=== PATIENT | male | born 1945 | race Caucasian/White ===

== ENCOUNTER → 2017-07-20 | Outpatient (CLI) | payer OTHER ==
[~2017-07-20] MED LIST: MEDLIST
[2017-07-20 11:58] LABS: HEMATOCRIT 40.7 % (42-52); HEMOGLOBIN 14.2 g/dL (14.0-18.0); MEAN CELL VOLUME 91.3 fL (80-100); MEAN CORPUSCULAR HEMOGLOBIN 31.8 pg (25-34); MEAN CORPUSCULAR HGB CONC 34.9 g/dl (32-36); MEAN PLATELET VOLUME 9.6 fL (7.4-10.4); PLATELET COUNT 160 K/uL (130-400); RED CELL DISTRIBUTION WIDTH CV 12.5 % (11.5-14.5)
[2017-07-20 12:25] LABS: ALBUMIN 3.6 gm/dl (3.4-5.0); ALT/SGPT 33 U/L (12-78); BLOOD UREA NITROGEN 17 mg/dl (7-18); CALCIUM 8.5 mg/dl (8.5-10.1); CARBON DIOXIDE 31 mmol/L (21-32); CREATININE 0.92 mg/dl (0.60-1.40); GLUCOSE 90 mg/dl (70-99); POTASSIUM 4.3 mmol/L (3.5-5.1); SODIUM 142 mmol/L (136-145)
[2017-07-20 12:28] LABS: ALKALINE PHOSPHATASE 150 U/L (45-117); AST/SGOT 26 U/L (15-37); CHOLESTEROL 96 mg/dl (0-200); LDL CHOLESTEROL CALCULATED 39 mg/dl; TOTAL PROTEIN 7.3 gm/dl (6.4-8.2)
== END | disposition home or self-care (01) ==
LOC: C.LAB1850 11:01
PROVIDERS: ATTEND Internal Medicine Cardiovascular Disease
DX: I10 Essential (primary) hypertension (principal)

== ENCOUNTER 2024-07-18 10:28 | Inpatient (IN) ==
[2024-07-18] MEDS: SODIUM CHLORIDE 0.9% 1,000 ML IV ONE ×2 (11:00→16:43)
[2024-07-18 11:15] LABS: Basophils # (auto) 0.03 K/uL (0.00-0.20); Basophils % (auto) 0.2 %; Hematocrit (blood only) 50.3 % (42.0-52.0); Hemoglobin 16.8 g/dl (14.0-18.0); Immature Granulocytes % (auto) 1.1 %; Lymphocytes # (auto) 0.65 K/uL (1.20-3.40); Lymphocytes % (auto) 3.7 %; Mean Corpuscular Hemoglobin 31.1 pg (25.0-34.0); Mean Corpuscular Hgb Conc 33.4 g/dL (32.0-36.0); Mean Platelet Volume 9.7 fL (9.4-12.4); Monocytes # (auto) 2.33 K/uL (0.11-0.59); Monocytes % (auto) 13.1 %; Neutrophils # (auto) 14.58 K/uL (1.40-6.50); Neutrophils % (auto) 81.9 %; Platelet Count 250 K/uL (130-400); RDW Coefficient of Variation 13.2 % (11.5-14.5); RDW Standard Deviation 44.3 fL (36.4-46.3); Red Blood Count 5.41 M/uL (4.70-6.10); White Blood Count 17.79 K/ul (4.8-10.8)
--- NOTE | 2024-07-18 11:15 | XRay Report ---
XR chest 1V portable CLINICAL HISTORY: Chest pain, nonspecific COMPARISON STUDY: 02/04/2018 FINDINGS: Heart size and pulmonary vasculature are normal. No effusion, consolidation, or pneumothora x. IMPRESSION: No acute findings. ACT 112: Negative or not required by law. Electronically signed by: Wily Prasad M.D. 07/18/2024 11:13 AM
[2024-07-18 11:29] LABS: Bilirubin Direct 0.2 mg/dl (0-0.2)
[2024-07-18 11:30] LABS: Albumin Globulin Ratio 1.4 (0.9-2); Albumin Level 3.2 gm/dl (3.4-5.0); BUN Creatinine Ratio 11.3 (10-20); Bilirubin,Total 0.9 mg/dl (0.2-1.0); Calcium 7.6 mg/dl (8.6-10.3); Creatinine Clr Calc Pharmacy 27.4 ml/min; Globulin 2.3 gm/dl (2.5-4.0); Magnesium 1.5 mg/dl (1.7-2.4); Phosphorus 5.3 mg/dl (2.5-4.9); Potassium 4.3 mmol/L (3.5-5.1); Total Protein 5.5 gm/dl (6.0-8.3)
[2024-07-18 11:41] LABS: Troponin I High Sensitivity 1022.3 pg/ml (0-20)
[2024-07-18 11:47] LABS: INR 1.1 (0.9-1.1)
--- NOTE | 2024-07-18 11:49 | Emergency Department Note ---
Impression & Plan Acute renal failure, Colitis, C. difficile colitis, Hypomagnesemia, Elevated troponin ED Provider Note NAME: BACILIO JHAVERI AGE: 79 SEX: M : 1945 ARRIVES VIA: Ambulance INFORMANT: Patient ED PROVIDER(S): Abisai Cervantes MD CHIEF COMPLAINT: Diarrhea, dehydration, generalized weakness PLAN: Disposition: Admit MEDICAL DECISION MAKING: The patient is a pleasant 79-year-old gentleman with past medical history of paroxysmal atrial fibrillation and atrial flutter on Eliquis, CAD, COPD, GERD who presents to the emergency department via EMS and accompanied by his for evaluation of ongoing frequent diarrhea worsening over the past several days in the setting of having onset of diarrhea over 2 weeks ago where he reports initial suspicion of viral gastroenteritis but when symptoms did not improve was treated for diverticulitis with 10-day course of ciprofloxacin and metronidazole. The patient reports he had several days of improvement/resolution of symptoms and then symptoms recurred more severely with frequent episodes too numerous to count. He denies any fevers. He reports feeling some intermittent upset stomach but denies vomiting. He denies chest pain, shortness of breath or dizziness. Per EMS the patient was hypotensive but improved with administration of 1 L normal saline prior to arrival. Of note, the patient did arrive to emergency department during time of high volume, acuity and prolonged emergency department waiting times. Critical pathways initiated from triage. EKG is without overt acute ischemia. Inferior infarct is seen on prior EKG in June 2023. CXR negative for acute cardiopulmonary process per my personal preliminary review/interpretation. WBC 17.7 K with neutrophilia but no left shift. H/H and platelets within normal limits. Chemistry without metabolic acidosis. Creatinine is 2.3 acutely elevated from prior values which were normal and so consistent with acute renal failure. Magnesium 1.5 with IV repletion initiated. Initial high-sensitivity troponin 1022 in the setting of acute renal failure and likely reflecting demand in setting of the patient's history of CAD. Patient denies chest pain or recent episodes of chest pain. Lipase is not elevated. CT of the chest negative for acute cardiopulmonary process. CT of the abdomen pelvis demonstrates box proctocolitis. Stool studies ordered and pending sample. Patient was treated with IV fluid hydration with 1 L normal saline bolus followed by lactated Ringer's @125cc/hr. Given the patient's acute renal failure in the setting of colitis with suspicion for C. difficile the patient does agree with plan for admission for further management. Case was discussed with Dr. Perales [facility] hospitalist, who will evaluate the patient for admission. Stool studies subsequently resulting and C. difficile PCR was positive for gene and toxin. Stool BioFire was negative. Admitting team updated. Further management per admitting team. Triage Nursing notes reviewed and agree them. Prior/external medical records reviewed Vital Signs: reviewed Differential diagnosis: Gastroenteritis, food borne illness, infections, appendicitis, diverticulitis, inflammatory bowel disease, obstruction, GI bleed, biliary pathology, volvulus, as well as other pathologies. ER treatment provided: See below. Diagnostics interpreted by me: ECG: Normal sinus rhythm, 76 bpm, no ectopy, inferior infarct seen on 07/08/2023. No overt ST elevation or depression, QTc 456, QRS 82. Cardiac Monitoring: An order for continuous cardiac monitoring was placed and demonstrated Normal sinus rhythm, 76 bpm, no ectopy. Laboratory studies: See below Imaging studies: See below Consultation(s): Dr. Perales [facility] hospitalist HPI: The patient is a pleasant 79-year-old gentleman with past medical history of paroxysmal atrial fibrillation and atrial flutter on Eliquis, CAD, COPD, GERD who presents to the emergency department via EMS and accompanied by his for evaluation of ongoing frequent diarrhea worsening over the past several days in the setting of having onset of diarrhea over 2 weeks ago where he reports initial suspicion of viral gastroenteritis but when symptoms did not improve was treated for diverticulitis with 10-day course of ciprofloxacin and metronidazole. The patient reports he had several days of improvement/resolution of symptoms and then symptoms recurred more severely with frequent episodes too numerous to count. He denies any fevers. He reports feeling some intermittent upset stomach but denies vomiting. He denies chest pain, shortness of breath or dizziness. Per EMS the patient was hypotensive but improved with administration of 1 L normal saline prior to arrival. ROS: See above HPI for pertinent positives & negatives. A total of 10 systems reviewed and were otherwise negative. VITALS:See Below PHYSICAL EXAMINATION: GENERAL: Awake, alert, fatigued-appearing, in no distress HENT: Normocephalic, atraumatic. Oropharynx with dry mucous membranes and otherwise unremarkable. EYES: Normal conjunctiva. Sclera non-icteric. NECK: Supple. No nuchal rigidity. FROM. No JVD. RESPIRATORY: Clear to auscultation. CARDIAC: Regular rate, normal rhythm. Extremities warm and well perfused. Pulses equal. ABDOMEN: Soft, non-distended. No tenderness to palpation. No rebound or guarding. No masses. MUSCULOSKELETAL: Chest examination reveals no tenderness. The back is symmetrical on inspection without obvious abnormality. There is no CVA tenderness to palpation. No joint edema. LOWER EXTREMITIES: Calves are equal size bilaterally and non-tender. No edema. No discoloration. NEURO: Normal sensorium. No sensory or motor deficits noted. SKIN: No rash or jaundice noted. Abisai Cervantes MD Past Med/Surg History Problem List (Updated 07/18/24 @ 21:18 by Abisai Cervantes MD) Elevated troponin (Acute) Hypomagnesemia (Acute) C. difficile colitis (Acute) Acute renal failure (Acute) Elevated troponin level not due to acute coronary syndrome Colitis (Acute) Diarrhea Esophageal reflux (Acute) Dyslipidemia (Chronic) Arteriosclerotic coronary artery disease (Chronic) Hypertension (Chronic) Varicose veins of both lower extremities (Acute) Antiplatelet or antithrombotic long-term use Palpitations Paroxysmal atrial fibrillation Paroxysmal atrial flutter Medicare annual wellness visit, subsequent Screening for malignant neoplasm of prostate Chronic anticoagulation Encounter for pre-operative examination Pulmonary nodules CAD (coronary artery disease) 2009- BMS TO RCA COPD (chronic obstructive pulmonary disease) PT DENIES Male erectile disorder of organic origin (Acute) Medical History History of tachycardia Myocardial Infarction Hypertension Hyperlipidemia Surgical History Hx of cataract extraction H/O inguinal hernia repair History of cholecystectomy History of heart artery stent History of tooth extraction Family History Mother Coronary heart disease Acute IN Pacemaker Sister Supraventricular tachycardia Father Congenital kidney disease Other Myocardial infarction No family history of adverse response to anesthesia Denies family history of Rheumatoid arthritis Sudden SIDS (sudden syndrome) Ovarian cancer Prostate cancer Diabetes Deep vein thrombosis Osteoporosis Dyslipidemia Cerebral aneurysm Alzheimer disease Bipolar disorder Clotting disorder Crohn's disease Dementia Depression Heart disease Kidney disease Osteoarthritis Breast cancer Schizophrenia Gestational diabetes Lung cancer COPD (chronic obstructive pulmonary disease) Colorectal cancer Pulmonary embolism Lung disease Hypertension Ulcerative colitis Colonic polyp Stroke Asthma Cystic kidney disease Social History (Updated 07/01/24 @ 11:23 by SILVER Dominguez) Smoking Status: Former smoker Tobacco Type: Cigarettes Age Started Using Tobacco: 15; Age Quit Using Tobacco: 65; packs per day: 1; Cigarettes Per Day: 20; Second Hand Exposure: Yes (as a child); Do You Dip or Chew Tobacco: No; Hx Alcohol Use: No Hx Substance Use: No Preferred Language: Swazi Communication Ability: Effective Visual Impairment: No Limitations Hearing Ability: Normal Electrician Substation Required: No Beliefs That Will Affect Care: None marital status: Current Living Situation: Spouse current occupational status: retired current occupation: used to work in a [employer] and then [employer] Feels Safe at Home: Yes Childhood Exposure to Second-Hand Smoke: No Diet: regular caffeine: Yes during the past year weight has: remained stable Dental Care, Regularly: No Physical Activity Frequency: 3-4 Times per Week Physical Activity Frequency Comment: does exercise in summer months doing yard work Seatbelt Use: always Sunscreen Use: Yes Assistive Devices: Denture - Upper, Denture - Lower and Glasses Allergies Allergies Allergy/AdvReac Type Severity Reaction Status Date / Time No Known Allergies Allergy Verified 07/18/24 13:04 Home Meds Home Medications Medication Instructions Recorded Confirmed aspirin 81 mg tablet,delayed 81 mg PO QAM 11/08/18 07/18/24 release (Jaxon Low Dose Aspirin) Previous Rx's Medication Instructions Recorded nitroglycerin 0.4 mg sublingual 0.4 mg sublingual Q5M PRN chest 04/15/23 tablet pain #30 tabs apixaban 5 mg tablet 5 mg PO BID #180 tabs 04/20/24 atorvastatin 80 mg tablet 80 mg PO QAM #90 tabs 04/20/24 lisinopril 5 mg tablet 5 mg PO QAM #90 tabs 04/20/24 metoprolol tartrate 25 mg tablet 25 mg PO Q6H PRN palpitations #30 04/20/24 tabs Results & Data (ED) Vital Signs Vital Signs - 24 hr 07/18/24 10:37 07/18/24 11:01 07/18/24 11:02 Temperature 36.5 C Temperature Source Oral Pulse Rate 83 85 Pulse Rate [Apical] Respiratory Rate 18 Respiratory Effort / Characteristics Non-Labored Respiratory Depth Normal Blood Pressure 113/62 Blood Pressure [Left Arm] Blood Pressure Mean 79 Blood Pressure Mean [Left Arm] Blood Pressure Position [Left Arm] Pulse Oximetry 97 95 Oxygen Delivery Method Nasal Cannula Room Air Oxygen Flow Rate 2 Sepsis Recent Fever Within 48 Hours No Sepsis New/Unexplained Change in Mental Status No Sepsis Action Taken by Nursing No Action Required 07/18/24 11:02 07/18/24 12:09 07/18/24 13:01 Temperature Temperature Source Pulse Rate Pulse Rate [Apical] 77 74 Respiratory Rate 18 18 Respiratory Effort / Characteristics Respiratory Depth Blood Pressure Blood Pressure [Left Arm] 113/68 115/67 96/57 L Blood Pressure Mean Blood Pressure Mean [Left Arm] 83 83 70 Blood Pressure Position [Left Arm] Lying Lying Pulse Oximetry 93 96 Oxygen Delivery Method Room Air Oxygen Flow Rate Sepsis Recent Fever Within 48 Hours Sepsis New/Unexplained Change in Mental Status Sepsis Action Taken by Nursing Laboratory Data Attestation: I reviewed the patient's lab results. 07/18/24 10:52 07/18/24 18:52 Lab Results 07/18/24 07/18/24 07/18/24 Range/Units 10:52 11:25 12:54 WBC 17.79 H (4.8-10.8) K/ul RBC 5.41 (4.70-6.10) M/uL Hgb 16.8 (14.0-18.0) g/dl Hct 50.3 (42.0-52.0) % MCV 93.0 (80.0-100.0) fL MCH 31.1 (25.0-34.0) pg MCHC 33.4 (32.0-36.0) g/dL RDW Std Deviation 44.3 (36.4-46.3) fL RDW Coeff of Aleisha 13.2 (11.5-14.5) % Plt Count 250 (130-400) K/uL MPV 9.7 (9.4-12.4) fL Immature Gran % (Auto) 1.1 % Neut % (Auto) 81.9 % Lymph % (Auto) 3.7 % Victoria % (Auto) 13.1 % Eos % (Auto) 0.0 % Baso % (Auto) 0.2 % Neut # (Auto) 14.58 H (1.40-6.50) K/uL Lymph # (Auto) 0.65 L (1.20-3.40) K/uL Victoria # (Auto) 2.33 H (0.11-0.59) K/uL Eos # (Auto) 0.00 (0.00-0.50) K/uL Baso # (Auto) 0.03 (0.00-0.20) K/uL Immature Gran # (Auto) 0.20 (0.01-0.20) K/uL PT 12.0 (9.0-12.0) Seconds INR 1.1 (0.9-1.1) Sodium 139 (136-145) mmol/L Potassium 4.3 (3.5-5.1) mmol/L Chloride 107 (98-107) mmol/L Carbon Dioxide 22 (21-32) mmol/L Anion Gap 10 (3-11) BUN 26 H (6-23) mg/dl Creatinine 2.30 H (0.6-1.4) mg/dl Est Cr Clr Drug Dosing 27.4 ml/min eGFR 28.00 BUN/Creatinine Ratio 11.3 (10-20) Glucose 168 H (70-99(Fasting)) mg/dl Calcium 7.6 L (8.6-10.3) mg/dl Phosphorus 5.3 H (2.5-4.9) mg/dl Magnesium 1.5 L (1.7-2.4) mg/dl Total Bilirubin 0.9 (0.2-1.0) mg/dl Direct Bilirubin 0.2 (0-0.2) mg/dl AST 24 (13-39) U/L ALT 28 (7-52) U/L Alkaline Phosphatase 91 (34-104) U/L Troponin I High Sens 1022.3 H* 942.1 H* (0-20) pg/ml Total Protein 5.5 L (6.0-8.3) gm/dl Albumin 3.2 L (3.4-5.0) gm/dl Globulin 2.3 L (2.5-4.0) gm/dl Albumin/Globulin Ratio 1.4 (0.9-2) Lipase 7 L (11-82) U/L Adenovirus (PCR) Not Detected (NotDetected) B. pertussis DNA (PCR) Not Detected (NotDetected) B.parapertussis DNA PCR Not Detected (NotDetected) C. pneumoniae DNA (PCR) Not Detected (NotDetected) Coronavirus OC43 (PCR) Not Detected (NotDetected) Coronavirus HKU1 (PCR) Not Detected (NotDetected) Coronavirus 229E (PCR) Not Detected (NotDetected) SARS-CoV-2 (PCR) Not Detected (NotDetected) Coronavirus NL63 (PCR) Not Detected (NotDetected) Human Metapneumovir PCR Not Detected (NotDetected) Influenza Type A (PCR) Not Detected (NotDetected) Influenza Type B (PCR) Not Detected (NotDetected) M. pneumoniae (PCR) Not Detected (NotDetected) Parainfluenza 1 (PCR) Not Detected (NotDetected) Parainfluenza 2 (PCR) Not Detected (NotDetected) Parainfluenza 3 (PCR) Not Detected (NotDetected) Parainfluenza 4 (PCR) Not Detected (NotDetected) RSV (PCR) Not Detected (NotDetected) Entero/Rhino (PCR) Not Detected (NotDetected) Administered Medications Davies Syrup (Davies Syrup 5 Ml Udp) 5 ml PO Q6 OBIE Stop: 07/28/24 17:59 Last Admin: 07/18/24 17:37 Dose: 5 ml Documented By: KODY Vancomycin HCl (Vancomycin Hcl 125 Mg/2.5ml Soln) 125 mg PO Q6 OBIE Stop: 07/28/24 17:59 Last Admin: 07/18/24 17:37 Dose: 125 mg Documented By: KODY Discontinued Medications Apixaban (Apixaban 5 Mg Tablet) 5 mg PO ONE ONE Stop: 07/18/24 13:34 Last Admin: 07/18/24 14:19 Dose: 5 mg Documented By: LAURA Aspirin (Aspirin Chew 324 Mg) 324 mg PO NOW STA Stop: 07/18/24 13:36 Last Admin: 07/18/24 14:19 Dose: 324 mg Documented By: LAURA Sodium Chloride (Nss) 1,000 mls @ 999 mls/hr IV .Q1H1M ONE Stop: 07/18/24 11:39 Last Infusion: 07/18/24 12:08 Dose: Infused Documented By: Admin: 07/18/24 11:00 Dose: 999 mls/hr Documented By: LAURA Famotidine (Pepcid 20mg Iv Push) 20 mg in 5 mls @ 2.5 mls/min IV NOW STA Stop: 07/18/24 11:52 Last Admin: 07/18/24 12:05 Dose: 2.5 mls/min Documented By: LAURA Magnesium Sulfate/Dextrose (Magnesium Sulfate / D5w) 1 gm in 100 mls @ 100 mls/hr IV Q1H OBIE Stop: 07/18/24 14:08 Last Infusion: 07/18/24 15:00 Dose: Infused Documented By: Admin: 07/18/24 13:57 Dose: 100 mls/hr Documented By: Infusion: 07/18/24 13:57 Dose: Infused Documented By: Admin: 07/18/24 12:57 Dose: 100 mls/hr Documented By: LAURA Lactated Ringer's (Lr) 1,000 mls @ 125 mls/hr IV .Q8H ONE Stop: 07/18/24 21:03 Last Admin: 07/18/24 17:37 Dose: 125 mls/hr Documented By: KOYD Piperacillin Sod/Tazobactam Sod (Zosyn) 4.5 gm in 100 mls @ 200 mls/hr IV NOW ONE; Protocol Stop: 07/18/24 14:01 Last Infusion: 07/18/24 15:15 Dose: Infused Documented By: Admin: 07/18/24 14:45 Dose: 200 mls/hr Documented By: LAURA Sodium Chloride (Nss) 1,000 mls @ 999 mls/hr IV .Q1H1M ONE Stop: 07/18/24 17:24 Last Infusion: 07/18/24 17:36 Dose: Infused Documented By: Admin: 07/18/24 16:43 Dose: 999 mls/hr Documented By: KODY Ondansetron HCl (Ondansetron Inj 2 Mg/Ml 2 Ml Vial) 4 mg IV NOW STA Stop: 07/18/24 11:52 Last Admin: 07/18/24 12:05 Dose: 4 mg Documented By: LAURA Imaging Data Radiologist's Impression: Chest X-Ray 07/18/24 10:40 XR chest 1V portable CLINICAL HISTORY: Chest pain, nonspecific COMPARISON STUDY: 02/04/2018 FINDINGS: Heart size and pulmonary vasculature are normal. No effusion, consolidation, or pneumothorax. IMPRESSION: No acute findings. ACT 112: Negative or not required by law. Electronically signed by: Wily Prasad M.D. 07/18/2024 11:13 AM Abdomen/Pelvis CT 07/18/24 12:[address] WITHOUT CONTRAST HISTORY: Acute chest and abdominal pain Abdominal pain, N/V/D, troponin 1k TECHNIQUE: Multiaxial CT images of the abdomen and pelvis were performed without contrast. A dose lowering technique was utilized adhering to the principles of ALARA. COMPARISON STUDY: Chest CT of same day, CT abdomen and pelvis 02/04/2018 FINDINGS: Chest CT dictated separately. No pneumatosis or pneumoperitoneum. The unenhanced spleen, pancreas and adrenal glands are unremarkable. Cholecystectomy. Unremarkable liver. Kidneys are within normal limits. No hydronephrosis. Urinary bladder wall thickening with partial distention. Prostatomegaly. Atherosclerosis of the abdominal aorta without aneurysm. No new or progressive lymphadenopathy. Partially calcified lesion involving the mesenteric root on image 127 is unchanged from the 2018 comparison measuring up to 2.7 cm. Wall thickening of the distal esophagus with indeterminate mural calcifications is a stable finding. Colonic diverticulosis. There is diffuse wall thickening felt the rectum and sigmoid with adjacent pericolonic and perirectal inflammation. Subcentimeter lymph nodes within the sigmoid mesocolon. Fluid filled appendix measures upper limits of normal in size. No fluid collections. No acute fracture. Grade 1 anterolisthesis L5 on S1 secondary to chronic bilateral pars defects. IMPRESSION: 1. Findings compatible with a box-proctocolitis, likely infectious or inflammatory. 2. No bowel obstruction or pneumoperitoneum. 3. Mural calcifications of the distal esophagus with 2.7 cm calcified lesion/lymph node within the mesenteric root, unchanged from 2018. 4. Colonic diverticulosis. 5. Additional findings as above. ACT 112: Negative or not required by law. The above report was generated using voice recognition software. It may contain grammatical, syntax or spelling errors. Electronically signed by: Angelito Jamison M.D. 07/18/2024 1:[address] 07/18/24 12:06 CT chest diagnostic wo con CT DOSE: 1585.34 mGy.cm CLINICAL HISTORY: 79 years-old Male with Abdominal pain, N/V/D, troponin 1k. Acute chest and abdominal pain TECHNIQUE: Multiaxial CT images of the chest were performed without contrast. A dose lowering technique was utilized adhering to the principles of ALARA. COMPARISON: Chest radiograph of same day, CT abdomen and pelvis 02/04/2018, chest CT 06/12/2011 FINDINGS: Unremarkable thyroid. No pathologically enlarged lymph nodes. There are a few partially calcified mediastinal and hilar lymph nodes suggestive of prior granulomatous disease. Heart is normal in size. No pericardial effusion. Moderate coronary artery calcifications. Atherosclerosis of the aorta without aneurysm. Mild pulmonary emphysema with scarring of the lung apices. 6 mm partially calcified fissural nodule in the right middle lobe on image 133 is likely benign. There are a few additional scattered subcentimeter solid pulmonary nodules noted bilaterally. No suspicious pulmonary nodules or masses. Colonic diverticulosis. There is wall thickening of the splenic flexure and proximal descending colon with mild adjacent inflammatory stranding. Cholecystectomy. Findings suggestive of bilateral adrenal hyperplasia. Bones appear intact. IMPRESSION: 1. Emphysema without acute intrathoracic abnormality. 2. Findings suggestive of a mild acute colitis versus diverticulitis of the splenic flexure and proximal descending colon. Correlate with patient history and physical exam findings. 3. Prior granulomatous disease. 4. Cholecystectomy. ACT 112: Negative or not required by law. Electronically signed by: Angelito Jamison M.D. 07/18/2024 1:04 PM Discharge Plan Visit Data Chief Complaint: Diarrhea Stated Complaint: HYPOTENSION, AB PAIN, FLU LIKE SX ED Provider: Abisai Cervantes Discharge Problem: Acute renal failure, Colitis, C. difficile colitis, Hypomagnesemia, Elevated troponin Patient Disposition: Admitted As Inpatient Discharge Instructions Interventions: ED Discharge Assessment Last Done: 07/18/24 16:11 Discharge Problem: Acute renal failure Qualifiers: Acute renal failure type: unspecified Qualified Code(s): N17.9 - Acute kidney failure, unspecified
[2024-07-18] MEDS: ONDANSETRON INJ 2 MG/ML 2 ML VIAL IV STA (12:05)
[2024-07-18] MEDS: FAMOTIDINE 20MG IV PUSH 20 MG/5 ML SYR IV STA (12:05)
[2024-07-18 12:30] LABS: Adenovirus PCR Not Detected (NotDetected); Bordetella parapertussis PCR Not Detected (NotDetected); Bordetella pertussis PCR Not Detected (NotDetected); Chlamydia pneumoniae PCR Not Detected (NotDetected); Coronavirus 229E PCR Not Detected (NotDetected); Coronavirus CoV-2 (COVID19)PCR Not Detected (NotDetected); Coronavirus HKU1 PCR Not Detected (NotDetected); Coronavirus NL63 PCR Not Detected (NotDetected); Coronavirus OC43PCR Not Detected (NotDetected); Human Metapneumovirus PCR Not Detected (NotDetected); Influenza A PCR Not Detected (NotDetected); Influenza B PCR Not Detected (NotDetected); Mycoplasma pneumoniae PCR Not Detected (NotDetected); Parainfluenza Virus 1 PCR Not Detected (NotDetected); Parainfluenza Virus 2 PCR Not Detected (NotDetected); Parainfluenza Virus 3 PCR Not Detected (NotDetected); Parainfluenza Virus 4 PCR Not Detected (NotDetected); Respiratory Syncytial VirusPCR Not Detected (NotDetected); Rhinovirus/Enterovirus PCR Not Detected (NotDetected)
[2024-07-18] MEDS: MAGNESIUM SULFATE / D5W 1 GM/100 ML BAG IV SCH (12:57)
--- NOTE | 2024-07-18 13:05 | CT Scan Report ---
CT chest diagnostic wo con CT DOSE: 1585.34 mGy.cm CLINICAL HISTORY: 79 years-old Male with Abdominal pain, N/V/D, troponin 1k. Acute chest and abdomin al pain TECHNIQUE: Multiaxial CT images of the chest were performed without contrast. A dose lowering techni que was utilized adhering to the principles of ALARA. COMPARISON: Chest radiograph of same day, CT abdomen and pelvis 02/04/2018, chest CT 06/12/2011 FINDINGS: Unremarkable thyroid. No pathologically enlarged lymph nodes. There are a few partially russel cified mediastinal and hilar lymph nodes suggestive of prior granulomatous disease. Heart is normal i n size. No pericardial effusion. Moderate coronary artery calcifications. Atherosclerosis of the aort a without aneurysm. Mild pulmonary emphysema with scarring of the lung apices. 6 mm partially calcified fissural nodule i n the right middle lobe on image 133 is likely benign. There are a few additional scattered subcentim eter solid pulmonary nodules noted bilaterally. No suspicious pulmonary nodules or masses. Colonic diverticulosis. There is wall thickening of the splenic flexure and proximal descending colon with mild adjacent inflammatory stranding. Cholecystectomy. Findings suggestive of bilateral adrenal hyperplasia. Bones appear intact. IMPRESSION: 1. Emphysema without acute intrathoracic abnormality. 2. Findings suggestive of a mild acute colitis versus diverticulitis of the splenic flexure and proxi mal descending colon. Correlate with patient history and physical exam findings. 3. Prior granulomatous disease. 4. Cholecystectomy. ACT 112: Negative or not required by law. Electronically signed by: Angelito Jamison M.D. 07/18/2024 1:04 PM
--- NOTE | 2024-07-18 13:16 | CT Scan Report ---
ABDOMEN AND PELVIS CT WITHOUT CONTRAST HISTORY: Acute chest and abdominal pain Abdominal pain, N/V/D, troponin 1k TECHNIQUE: Multiaxial CT images of the abdomen and pelvis were performed without contrast. A dose lo wering technique was utilized adhering to the principles of ALARA. COMPARISON STUDY: Chest CT of same day, CT abdomen and pelvis 02/04/2018 FINDINGS: Chest CT dictated separately. No pneumatosis or pneumoperitoneum. The unenhanced spleen, pa ncreas and adrenal glands are unremarkable. Cholecystectomy. Unremarkable liver. Kidneys are within n ormal limits. No hydronephrosis. Urinary bladder wall thickening with partial distention. Prostatomeg jp. Atherosclerosis of the abdominal aorta without aneurysm. No new or progressive lymphadenopathy. Partially calcified lesion involving the mesenteric root on image 127 is unchanged from the 2018 comp arison measuring up to 2.7 cm. Wall thickening of the distal esophagus with indeterminate mural calcifications is a stable finding. Colonic diverticulosis. There is diffuse wall thickening felt the rectum and sigmoid with adjacent pe ricolonic and perirectal inflammation. Subcentimeter lymph nodes within the sigmoid mesocolon. Fluid filled appendix measures upper limits of normal in size. No fluid collections. No acute fracture. Gra de 1 anterolisthesis L5 on S1 secondary to chronic bilateral pars defects. IMPRESSION: 1. Findings compatible with a box-proctocolitis, likely infectious or inflammatory. 2. No bowel obstruction or pneumoperitoneum. 3. Mural calcifications of the distal esophagus with 2.7 cm calcified lesion/lymph node within the me senteric root, unchanged from 2018. 4. Colonic diverticulosis. 5. Additional findings as above. ACT 112: Negative or not required by law. The above report was generated using voice recognition software. It may contain grammatical, syntax o r spelling errors. Electronically signed by: Angelito Jamison M.D. 07/18/2024 1:14 PM
--- NOTE | 2024-07-18 13:42 | History & Physical Report ---
Date of Service July 18, 2024 Assessment & Plan (1) Colitis: Plan: Assessment: 1. Concern for early clinical sepsis with borderline tachycardia 92 bpm with hypotension 96/57. Leukocytosis, acute kidney injury. Blood cultures are obtained stat. Lactic acid obtained stat. IV Zosyn for now given his colitis. 2. Diarrheal illness with colitis on CAT scan. Diverticulitis versus possibly C. difficile colitis. Will begin Zosyn at this time. Stool bio fire is pending. If positive for C. difficile we will go ahead and order oral vancomycin as well. The patient completed a 10-day course of Flagyl and Cipro orally from July 01 through July 11, 2024. Clear liquids for now. 3. Acute kidney injury due to hypovolemia dehydration. Creatinine 2.6. Baseline 0.8-0.9. Hydrate. Monitor BMP carefully. Hold EFREN inhibitor or any nephrotoxic agents. 4. Elevated troponin. Type II non-ST elevation myocardial infarction. Cardiology consulted. Serial troponins. Aspirin 324 stat x 1. Continue Eliquis for now. Echocardiogram ordered. 5. Coronary artery disease status post bare-metal stent to the RCA 2009. 6. Hypomagnesemia. Replaced. Monitor. 7. Hypertension. Continue home meds when blood pressure appropriate. 8. GERD. 9. Dyslipidemia. Continue statin therapy 10. History of paroxysmal atrial fibrillation. Continue Eliquis for now. Plan: As discussed above. Please refer to orders for further planning. History of Present Illness Chief Complaint: Diarrhea Primary Care Provider: Basim Gomez, DO Very pleasant 79-year-old male who back on or about July 01, 2024 saw his PCP for some loose stools and left lower quadrant pain. At that time he was empirically started on Flagyl and Cipro for possible diverticulitis. He completed a 10-day course of that ending on July 11, 2024. Has been doing well up until about 36 hours ago when he developed severe watery diarrhea. He presented to the ER for further evaluation and treatment today. Viral respiratory panel was negative. Laboratory studies had some gross abnormalities including a troponin of 1022, magnesium of 1.5, white count of almost 18,000, creatinine of 2.6 with a baseline of 0.8-0.9. CT of the abdomen pelvis demonstrated colitis versus diverticulitis. Patient received H2 herb, he received some lactated Ringer's magnesium replacement, 2 g,. We are called admit the patient for evaluation and treatment of colitis/diverticulitis. Stool bio fire is pending samples been sent. We have ordered a stat aspirin 324 given the elevated troponin. The patient did not take his morning Eliquis. We spoke personally with cardiology will see the patient in consultation they recommend he continue his Eliquis given no ischemic EKG changes. Do an echocardiogram. Pending a stool bio fire if he does have C. difficile we will begin oral vancomycin. Will isolate empirically pending stool BioFire result Allergies Allergy/AdvReac Type Severity Reaction Status Date / Time No Known Allergies Allergy Verified 07/18/24 13:04 Home Medications Medication Instructions Recorded Confirmed Type aspirin 81 mg tablet,delayed 81 mg PO QAM 11/08/18 07/18/24 History release (Jaxon Low Dose Aspirin) nitroglycerin 0.4 mg sublingual 0.4 mg sublingual Q5M PRN chest 04/15/23 07/18/24 Rx tablet pain #30 tabs apixaban 5 mg tablet 5 mg PO BID #180 tabs 04/20/24 07/18/24 Rx atorvastatin 80 mg tablet 80 mg PO QAM #90 tabs 04/20/24 07/18/24 Rx lisinopril 5 mg tablet 5 mg PO QAM #90 tabs 04/20/24 07/18/24 Rx metoprolol tartrate 25 mg tablet 25 mg PO Q6H PRN palpitations #30 04/20/24 07/18/24 Rx tabs Past Med/Surg History Problem List (Updated 07/18/24 @ 13:39 by Sav Perales, PhD, DO) Colitis Diarrhea Esophageal reflux (Acute) Dyslipidemia (Chronic) Arteriosclerotic coronary artery disease (Chronic) Hypertension (Chronic) Varicose veins of both lower extremities (Acute) Antiplatelet or antithrombotic long-term use Palpitations Paroxysmal atrial fibrillation Paroxysmal atrial flutter Medicare annual wellness visit, subsequent Screening for malignant neoplasm of prostate Chronic anticoagulation Encounter for pre-operative examination Pulmonary nodules CAD (coronary artery disease) 2009- BMS TO RCA COPD (chronic obstructive pulmonary disease) PT DENIES Male erectile disorder of organic origin (Acute) Medical History History of tachycardia Myocardial Infarction Hypertension Hyperlipidemia Surgical History Hx of cataract extraction H/O inguinal hernia repair History of cholecystectomy History of heart artery stent History of tooth extraction Family History Mother Coronary heart disease Acute CA Pacemaker Sister Supraventricular tachycardia Father Congenital kidney disease Other Myocardial infarction No family history of adverse response to anesthesia Denies family history of Rheumatoid arthritis Sudden SIDS (sudden infant syndrome) Ovarian cancer Prostate cancer Diabetes Deep vein thrombosis Osteoporosis Dyslipidemia Cerebral aneurysm Alzheimer disease Bipolar disorder Clotting disorder Crohn's disease Dementia Depression Heart disease Kidney disease Osteoarthritis Breast cancer Schizophrenia Gestational diabetes Lung cancer COPD (chronic obstructive pulmonary disease) Colorectal cancer Pulmonary embolism Lung disease Hypertension Ulcerative colitis Colonic polyp Stroke Asthma Cystic kidney disease Social History (Updated 07/01/24 @ 11:23 by SILVER Dominguez) Smoking Status: Former smoker Tobacco Type: Cigarettes Age Started Using Tobacco: 15; Age Quit Using Tobacco: 65; packs per day: 1; Cigarettes Per Day: 20; Second Hand Exposure: Yes (as a child); Do You Dip or Chew Tobacco: No; Hx Alcohol Use: No Hx Substance Use: No Preferred Language: Pry[place]in[place] Communication Ability: Effective Visual Impairment: No Limitations Hearing Ability: Normal Industrial Electrician Required: No Beliefs That Will Affect Care: None marital status: Current Living Situation: Spouse current occupational status: retired current occupation: used to work in a [employer] and then [employer] Feels Safe at Home: Yes Childhood Exposure to Second-Hand Smoke: No Diet: regular caffeine: Yes during the past year weight has: remained stable Dental Care, Regularly: No Physical Activity Frequency: 3-4 Times per Week Physical Activity Frequency Comment: does exercise in summer months doing yard work Seatbelt Use: always Sunscreen Use: Yes Assistive Devices: Denture - Upper, Denture - Lower and Glasses Review of Systems Review of Systems: A 10 point review of system was obtained and unless otherwise stated here or in history of present illness are negative and noncontributory to chief complaint. Physical Exam Physical Exam: In General: In general pleasant 79-year-old male who is alert and oriented x 3 at the time of my exam. He is in no acute distress he denies any chest pain or shortness of breath or cardiac symptoms whatsoever. He denies nausea. He only mitts to left lower quadrant discomfort and ongoing watery diarrhea. He is accompanied by his at the time my exam whom he grants permission to be in the room during my evaluation. Patient reports he is most recently retired from [employer] as well as serving 4 years in [employer]. HEENT: Normocephalic atraumatic pupils are equal round and reactive to light bilaterally. No scleral icterus no conjunctival injection external auditory canals are patent septum is in the midline nose is without discharge oral mucosa is pink and very dry mucous membranes without lesion. NECK: Supple no rigidity no lymphadenopathy no thyromegaly no carotid bruits no JVD no masses. HEART: Irregular rate and rhythm. Consistent with atrial fibrillation. I do not appreciate any rub or murmur. LUNGS: Clear to auscultation bilaterally and anteriorly with no evidence of adventitious sounds/wheezes rales or rhonchi. ABDOMEN: Soft, mildly tender left lower quadrant especially, no rebound. No peritoneal sign. No appreciable organomegaly. Hyperactive bowel sounds.. EXTREMITIES: Intact, no peripheral cyanosis, clubbing or edema. Strength is 5 out of 5 in extremities x4. NEUROLOGICAL: Cranial nerves II through XII are grossly intact with no focal deficit elicited upon examination. No tremor. Results & Data Results & Data Vital Signs (Past 12 Hours) Vital Signs Temp Pulse Pulse Resp BP BP Pulse Ox 07/18/24 13:01 74 18 96/57 L 96 07/18/24 12:09 77 18 115/67 93 07/18/24 11:02 113/68 07/18/24 11:02 95 07/18/24 11:01 85 07/18/24 10:37 36.5 C 83 18 113/62 97 O2 Del Method O2 Flow Rate 07/18/24 13:01 Room Air 07/18/24 12:09 07/18/24 11:02 07/18/24 11:02 Room Air 07/18/24 11:01 07/18/24 10:37 Nasal Cannula 2 Code Status & VTE Plan Code Status Full code: I personally discussed with patient at the bedside today. VTE Prophylaxis Plan VTE Prophylaxis will be ordered: Yes PG Care Time/CCT Total # of Minutes Spent Total Time Spent with Patient: Total time spent is greater than 50% in coordination of care (as documented) at patient's floor/unit and/or counseling patient: Coding Level of Care Code 47190 INT INP/OBS CARE MIN Diagnoses Colitis K52.9
[2024-07-18] MEDS: APIXABAN 5 MG TABLET PO ONE (14:19)
[2024-07-18] MEDS: ASPIRIN CHEW 324 MG PO STA (14:19)
--- NOTE | 2024-07-18 14:26 | Cardiology Consultation ---
Date of Consultation July 18, 2024 Assessment & Plan (1) Elevated troponin level not due to acute coronary syndrome: Pt is an 79 yo male with past cardiac history of CAD, inferior NE with RCA stent placement in 2009, hx of paroxysmal a-fib and a-flutter. He presented to ED with recurrent diarrhea and found to have elevated troponin in setting dehydration. Pt currently denies ACS symptoms and denies feeling of a-fib exacerbation. Pt states he notes palpitation during active a-fib. Pt's EKG is normal when compared to previous EKGs.. Echocardiogram shows EF of 60-65% with no ventricular wall motion abnormalities. Left concentric ventricular hypertrophy is consistent with that found in echo from 12/2009. Pt's home medications include metoprolol 25mg daily for rate control of paroxysmal afib as well as apixaban and aspirin. - Continue PO metoprolol 25mg q6h - Continue PO apixaban 5mg BID - Continue PO aspirin 81 mg Supervising Physician Co-Signing Physician Notes The patient was seen and examined. Agree with assessment and plan as outlined by Dr. Erazo. Conclusions: 1. Elevated troponin -Minor elevation. -No chest pain or EKG changes. -Echocardiogram with normal left ventricular systolic function and moderate LVH. -Likely supply demand mismatch. -No evidence for an acute coronary syndrome. -No further cardiac evaluation necessary at this time. 2. Coronary artery disease -s/p RCA stent in 2009 -Continue medical management. 3. Paroxysmal atrial dysrhythmia -Continue rate control and long-term anticoagulation. -Currently in sinus rhythm. History of Present Illness Reason for Consultation: Elevated troponin in setting of diarrhea x 2 weeks Requesting Physician: Margarito Montelongo PA-C Attending Physician: Sav Perales MD History of Present Illness Pt is an 79 yo male with PMH of HTN, dyslipidemia, CAD, COPD, paroxysmal a-fib and a- flutter, inferior NE in 2009 with RCA stent placement. Pt follows with Dr. Esquivel for cardiology. Pt presented to ED due to ongoing non bloody diarrhea x 2 weeks. Pt states it started without specific cause. He was prescribed c iprofloxacin and metronidazole by his PCP, which initially helped his GI symptoms. Two days after completion of abx, he started having non-bloody diarrhea again and he has been unable to eat of drink due to nausea, diarrhea and dry heaving. Pt reports feeling weak and tired with abdominal pain and cramping. Pt endorses SOB with walking across room, but able to recover with sitting or standing to rest for less than 10-15 sec. Pt states he typically has a small amount of swelling at bilateral ankles that was occurring prior to GI symptoms. Pt denies chest pain or tightness, severe SOB, diaphoresis, radiating pain to neck/shoulder/back, dizziness, numbness/tingling, and upper extremity swelling. Allergies Allergy/AdvReac Type Severity Reaction Status Date / Time No Known Allergies Allergy Verified 07/18/24 13:04 Home Medications Medication Instructions Recorded Confirmed Type aspirin 81 mg tablet,delayed 81 mg PO QAM 11/08/18 07/18/24 History release (Jaxon Low Dose Aspirin) nitroglycerin 0.4 mg sublingual 0.4 mg sublingual Q5M PRN chest 04/15/23 07/18/24 Rx tablet pain #30 tabs apixaban 5 mg tablet 5 mg PO BID #180 tabs 04/20/24 07/18/24 Rx atorvastatin 80 mg tablet 80 mg PO QAM #90 tabs 04/20/24 07/18/24 Rx lisinopril 5 mg tablet 5 mg PO QAM #90 tabs 04/20/24 07/18/24 Rx metoprolol tartrate 25 mg tablet 25 mg PO Q6H PRN palpitations #30 04/20/24 07/18/24 Rx tabs Patient History Medical History (Reviewed 04/20/24 @ 14:24 by Jarocho Esquivel Jr, MD, LOCATED [facility]IN [facility]) History of tachycardia Myocardial Infarction Hypertension Hyperlipidemia Surgical History Hx of cataract extraction H/O inguinal hernia repair History of cholecystectomy History of heart artery stent History of tooth extraction Family History Mother Coronary heart disease Acute NE Pacemaker Sister Supraventricular tachycardia Father Congenital kidney disease Other Myocardial infarction No family history of adverse response to anesthesia Denies family history of Rheumatoid arthritis Sudden SIDS (sudden infant syndrome) Ovarian cancer Prostate cancer Diabetes Deep vein thrombosis Osteoporosis Dyslipidemia Cerebral aneurysm Alzheimer disease Bipolar disorder Clotting disorder Crohn's disease Dementia Depression Heart disease Kidney disease Osteoarthritis Breast cancer Schizophrenia Gestational diabetes Lung cancer COPD (chronic obstructive pulmonary disease) Colorectal cancer Pulmonary embolism Lung disease Hypertension Ulcerative colitis Colonic polyp Stroke Asthma Cystic kidney disease Social History (Updated 07/01/24 @ 11:23 by ISLVER Dominguez) Smoking Status: Former smoker Tobacco Type: Cigarettes Age Started Using Tobacco: 15; Age Quit Using Tobacco: 65; packs per day: 1; Cigarettes Per Day: 20; Second Hand Exposure: Yes (as a child); Do You Dip or Chew Tobacco: No; Hx Alcohol Use: No Hx Substance Use: No Preferred Language: Chinese Communication Ability: Effective Visual Impairment: No Limitations Hearing Ability: Normal Surgical Services Director Required: No Beliefs That Will Affect Care: None marital status: Current Living Situation: Spouse current occupational status: retired 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 HEENT: Normocephalic, atraumatic. PERRL, No scleral icterus or conjunctival injection. Oral mucosa is pink and with moist mucous membranes. NECK: Supple, no lymphadenopathy. No carotid bruits or JVD. HEART: Regular rate and rhythm with auscultation and via radial pulses, No murmurs noted. 2+ radial and pedal pulses LUNGS: Clear to auscultation bilaterally and anteriorly with no evidence of adventitious sounds/wheezes rales or rhonchi. ABDOMEN: Soft, mildly tender left lower quadrant, no rebound. Hyperactive bowel sounds. EXTREMITIES: Intact, no peripheral cyanosis, clubbing or trace edema at bilateral ankles, nonpitting. ROM is WNL in extremities x4. NEUROLOGICAL: Cranial nerves II through XII are grossly intact with no focal deficit elicited upon examination. No tremor. Results & Data Vital Signs (Past 12 Hours) Vital Signs Temp Pulse Pulse Resp BP BP Pulse Ox 07/18/24 13:01 74 18 96/57 L 96 07/18/24 12:09 77 18 115/67 93 07/18/24 11:02 113/68 07/18/24 11:02 95 07/18/24 11:01 85 07/18/24 10:37 36.5 C 83 18 113/62 97 O2 Del Method O2 Flow Rate 07/18/24 13:01 Room Air 07/18/24 12:09 07/18/24 11:02 07/18/24 11:02 Room Air 07/18/24 11:01 07/18/24 10:37 Nasal Cannula 2 PG Care Time/CCT Total # of Minutes Spent Total Time Spent with Patient: Total time spent is greater than 50% in coordination of care (as documented) at patient's floor/unit and/or counseling patient: Coding Level of Care Code 30000 INT INP/OBS CARE 3/75MIN Diagnoses Elevated troponin level not due to acute coronary syndrome R79.89 Resident Activity Tracking Resident Involvement: Resident Care Provided Care Provided: Adult Hospital Medicine
--- NOTE | 2024-07-18 14:34 | XCELERA ---
[id number] [id number]
[2024-07-18] MEDS: PIPERACILLIN/TAZOBACTAM 4.5 GM/100 ML BAG IV ONE (14:45)
--- NOTE | 2024-07-18 15:44 | Electrocardiogram Report ---
Test Reason : Blood Pressure : */* mmHG Vent. Rate : 76 BPM Atrial Rate : 76 BPM P-R Int : 130 ms QRS Dur : 82 ms QT Int : 406 ms P-R-T Axes : -19 -28 6 degrees QTcB Int : 456 ms Normal sinus rhythm Low voltage QRS Inferior infarct , age undetermined Abnormal ECG When compared with ECG of 04-Feb-2018 07:51, QRS axis Shifted left Inferior infarct is now Present QT has lengthened Confirmed by Сергей Nunn ([id number]) on 07/18/2024 3:44:39 PM Referred By: Confirmed By: Сергей Nunn
[2024-07-18 15:54] LABS: Adenovirus F 40/41 PCR Not Detected (NotDetected); Astrovirus PCR Not Detected (NotDetected); Campylobacter PCR Not Detected (NotDetected); Cryptosporidium PCR Not Detected (NotDetected); Cyclospora cayetanensis PCR Not Detected (NotDetected); Entamoeba histolytica PCR Not Detected (NotDetected); Enteroaggregative E.coli(EAEC) Not Detected (NotDetected); Enteropathogenic E.coli (EPEC) Not Detected (NotDetected); Enterotoxigenic E.coli (ETEC) Not Detected (NotDetected); Giardia lamblia PCR Not Detected (NotDetected); Norovirus GI/GII PCR Not Detected (NotDetected); Plesiomonas shigelloides PCR Not Detected (NotDetected); Rotavirus A PCR Not Detected (NotDetected); Salmonella PCR Not Detected (NotDetected); Sapovirus PCR Not Detected (NotDetected); Shiga-like Toxin E.coli (STEC) Not Detected (NotDetected); Shigella/Enteroinvasive E.coli Not Detected (NotDetected); Vibrio cholerae PCR Not Detected (NotDetected); Vibrio species PCR Not Detected (NotDetected); Yersinia enterocolitica PCR Not Detected (NotDetected)
[2024-07-18 16:07] LABS: Cdiff Antigen Positive; Cdiff Toxin B Gene (2yr or >) Positive Cdiff Gene (Neg)
[2024-07-18 16:10] LABS: Cdiff Toxin A+B Positive Cdiff Toxin (Negative)
[2024-07-18] MEDS ORDERED: ACETAMINOPHEN 325 MG TAB PO PRN (16:21)
[2024-07-18] MEDS: LACTATED RINGER'S 1,000 ML IV ONE (17:37)
[2024-07-18] MEDS: CHERRY SYRUP 5 ML UDP PO SCH (17:37)
[2024-07-18] MEDS: VANCOMYCIN HCL 125 MG/2.5ML SOLN PO SCH (17:37)
[2024-07-18 19:55] LABS: BUN Creatinine Ratio 15.7 (10-20); Calcium 7.5 mg/dl (8.6-10.3); Potassium 3.8 mmol/L (3.5-5.1); Troponin I High Sensitivity 1106.3 pg/ml (0-20)
[2024-07-18] MEDS: PIPERACILLIN/TAZOBACTAM 4.5 GM/100 ML BAG IV SCH (21:29)
[2024-07-18] MEDS: APIXABAN 2.5 MG TAB PO SCH (21:30)
[2024-07-18] MEDS: SODIUM CHLORIDE 0.9% 1,000 ML IV SCH (21:31)
[2024-07-19 00:11] LABS: Appearance Urine Cloudy (Clear); Bacteria Urine Automated None Seen (None Seen); Bilirubin Urine 1+ (Negative); Blood Urine Negative (Negative); Cast Urine Automated >20 /lpf (0-2); Color Urine Dark Yellow; Glucose Urine UA Negative (Negative); Ketones Urine Trace (Negative); Leukocyte Esterase Urine Negative (Negative); Nitrite Urine Negative (Negative); Protein Urine Trace (Negative); Specific Gravity Urine 1.025 (1.000-1.030); Urobilinogen Urine Negative (Negative); WBC Urine Automated 0-5 /hpf (0-5)
[2024-07-19] MEDS: LACTATED RINGER'S 1,000 ML IV ONE ×2 (04:16→05:14)
--- NOTE | 2024-07-19 04:26 | Communication Note ---
Date of Service: July 19, 2024 Overnight I was informed by nursing that the patient had converted to irregularly irregular rhythm consistent with afib w/RVR. Initially pt was hemodynamically stable with rates in the 120s and adequate BP. Pt is anticoagulated for history of PAF. As the evening progressed pts BP began to decline. Given 1L LR bolus. HR and BP did not respond to volume expansion. Given 125mcg digoxin IV. 2nd 1L LR bolus started. Rate calmed down to 110s-120s and MAP around 65 when I left bedside. Resident Activity Tracking Resident Involvement: Resident Care Provided Care Provided: Adult Hospital Medicine
[2024-07-19] MEDS: HYDROmorphone INJ 0.5 MG/0.5 ML SYR IV STA (04:32)
[2024-07-19] MEDS: DIGOXIN 125 MCG in SYRINGE 9.5 ML IV STA (04:48)
[2024-07-19 06:30] LABS: BUN Creatinine Ratio 17.7 (10-20); Calcium 6.6 mg/dl (8.6-10.3); Creatinine Clr Calc Pharmacy 31.1 ml/min; Magnesium 1.8 mg/dl (1.7-2.4); Potassium 4.2 mmol/L (3.5-5.1)
[2024-07-19 06:33] LABS: Basophils # (auto) 0.03 K/uL (0.00-0.20); Basophils % (auto) 0.3 %; Eosinophils # (auto) 0.01 K/uL (0.00-0.50); Eosinophils % (auto) 0.1 %; Hematocrit (blood only) 42.1 % (42.0-52.0); Immature Granulocytes # (auto) 0.06 K/uL (0.01-0.20); Immature Granulocytes % (auto) 0.5 %; Lymphocytes # (auto) 1.05 K/uL (1.20-3.40); Mean Corpuscular Hemoglobin 30.9 pg (25.0-34.0); Mean Corpuscular Hgb Conc 33.3 g/dL (32.0-36.0); Mean Corpuscular Volume 92.9 fL (80.0-100.0); Mean Platelet Volume 9.8 fL (9.4-12.4); Monocytes # (auto) 1.91 K/uL (0.11-0.59); Monocytes % (auto) 16.4 %; Neutrophils # (auto) 8.59 K/uL (1.40-6.50); Neutrophils % (auto) 73.7 %; Platelet Count 201 K/uL (130-400); RDW Standard Deviation 44.3 fL (36.4-46.3); Red Blood Count 4.53 M/uL (4.70-6.10); White Blood Count 11.65 K/ul (4.8-10.8)
[2024-07-19] MEDS: LACTATED RINGER'S 1,000 ML IV SCH (06:47)
[2024-07-19] MEDS: CALCIUM GLUCONATE 1,000 MG/60 ML BAG IV SCH (08:15)
[2024-07-19] MEDS: ASPIRIN 81 MG ECTAB PO SCH (08:16)
[2024-07-19] MEDS: ATORVASTATIN 40 MG TAB PO SCH (08:16)
[2024-07-19] MEDS ORDERED: STAT IV Infusion **Titration per Protocol STA ×2 (08:25→11:50)
[2024-07-19] MEDS: dilTIAZem HCL 125 MG in DEXTROSE 5% 100 ML IV SCH (09:00)
[2024-07-19] MEDS: DIGOXIN 250 MCG in SYRINGE 9 ML IV ONE (10:31)
[2024-07-19] MEDS ORDERED: 0.2 MICRON FILTER SET 1 EACH IV STA (11:50)
[2024-07-19] MEDS ORDERED: AMIODARONE IV BOLUS & DRIP IV STA (11:50)
--- NOTE | 2024-07-19 12:01 | Cardiology Progress Note ---
Date of Service July 19, 2024 Assessment & Plan (1) Paroxysmal atrial fibrillation: Plan: -Has a longstanding history of paroxysmal atrial fibrillation. -Suspect his acute illness a factor in this paroxysm of atrial fibrillation. -Ventricular response remains elevated despite intravenous diltiazem. -Would undertake a trial of intravenous amiodarone to hopefully attain sinus rhythm. -Continue apixaban. (2) Elevated troponin: Plan: -As before, this is likely a supply demand mismatch (acute illness and moderate LVH). -No evidence of an acute coronary syndrome. (3) CAD (coronary artery disease): Plan: -s/p RCA stent in 2009 -Continue medical management. Admission and Anticipated Discharge Date Admission Date: July 18, 2024 Subjective The patient is resting comfortably in bed without complaints of chest pain, dyspnea, or palpitations. We have discussed a short-term trial of amiodarone. Physical Exam Physical Exam: In general this is a well-developed well-nourished white male in no acute distress. HEENT exam is negative. Neck is supple with full carotid upstrokes. There are no carotid bruits. Jugular is pressure is flat at 90 degrees. There is no thyromegaly. Cardiovascular exam reveals an irregular regular rhythm with distant heart sounds. No obvious murmurs. Lungs are clear without rales, rhonchi, or wheezes. Abdomen is soft. Extremities reveal intact radial artery pulse bilaterally. There is no peripheral edema. Results & Data Vital Signs (Past 12 Hours) Vital Signs Temp Pulse Pulse Resp BP Pulse Ox O2 Del Method 07/19/24 11:48 36.7 C 125 H 19 91/54 L 94 Room Air 07/19/24 10:31 104 H 07/19/24 08:10 36.7 C 140 H 19 94/62 L 93 Room Air 07/19/24 05:17 86/56 L 07/19/24 04:48 132 H 07/19/24 04:20 127 H 118/80 07/19/24 02:54 36.6 C 104 H 18 97/58 L 93 Room Air Diagnostic Findings The patient went into atrial fibrillation at approximately 2230 last evening. Ventricular response remains above 100 despite intravenous diltiazem. PG Care Time/CCT Total # of Minutes Spent Total Time Spent with Patient: Total time spent is greater than 50% in coordination of care (as documented) at patient's floor/unit and/or counseling patient: Coding Level of Care Code 43406 SUB INP/OBS CARE 50MIN Diagnoses Paroxysmal atrial fibrillation I48.0 Elevated troponin R79.89 CAD (coronary artery disease) I25.10
[2024-07-19] MEDS: AMIODARONE / D5W 150 MG/100 ML BAG IV STA (12:52)
[2024-07-19] MEDS: AMIODARONE / D5W 360 MG/200 ML BAG IV ONE (13:14)
--- NOTE | 2024-07-19 13:20 | Hospitalist Progress Note ---
Date of Service July 19, 2024 Assessment & Plan (1) C. difficile colitis: Plan: severe illness as marked by acute renal failure, sepsis/lactic acidosis, etc. box-colitis seen on CT a/p no obvious risk factors for acquiring such day #2 of PO vancomycin 125mg QID plan 10 day course if he fails to improve on such will change vanco to dificid cont contact precautions add questran 4gm daily for bulking add lactinex clear liquids for now IV fluids electrolyte replacement (2) Atrial fibrillation with RVR: Plan: history of PAF and paroxysmal a.flutter converted to rapid a.fib overnight with BPs being low he is not a good candidate for BB or CCB s/p digoxin load with some rate control response but still quite tachy d/w cardiology - will stop diltiazem drip, stop digoxin; start amiodarone drip with bolus since he is chronically anticoagulated rhythm control is a good safe option cont Eliquis BID (3) Hypomagnesemia: Plan: s/p replacement resolved (4) Elevated troponin: Plan: 2nd to myocardial demand ischemia in setting of #1 and #2 above no evidence of ACS appreciate cardiology input (5) Acute renal failure: Plan: peak Cr 2.3 now 1.55 this afternoon continue IV Fluids, Rx of c diff colitis, etc. BMP am (6) Hypocalcemia: Plan: corrected calcium is still <8 accounting for minimal hypoalbuminemia in light of rapid a.fib gave 2 grams of IV calcium gluconate this am following such corrected calcium improved but still low give another 1 gram of calcium gluconate then add Tums 500mg TID check 25-OH vit D level am cause of low calcium - diarrhea, hypomagnesemia, etc. (7) CAD (coronary artery disease): Plan: typically on lisinopril, atorvastatin, aspirin, and nitro prn holding lisinopril due to low BPs can continue asa and atorvastatin no ischemic symptoms at this time Plan DVT proph - Eliquis will need PT/OT appreciate cardiology assistance; care d/w cardiology updated at bedside today Admission and Anticipated Discharge Date Admission Date: July 18, 2024 Subjective patient converted into rapid a.fib overnight became hypotensive with such was given IV fluid boluses and a dose of digoxin IV x 1 despite such his rates have been >100 dilt drip started and, despite the dilt drip, rates continued to be poor after discussion with cardiology amiodarone bolus/drip to be started patient continues with severe diarrhea going about 1x/hour pure liquid no blood had abdominal pain overnight - relieved with dilaudid IV x 1 no pain since no appetite but is tolerating clears without nausea/emesis no recent abx usage except for when he was placed on cipro/flagyl for presumed diverticulitis not ill with diarrhea was present during the visit Review of Systems Review of Systems: gen - no fevers or chills; fatigued/weak cv - no chest pain pulm - no dyspnea Physical Exam Physical Exam: gen - NAD, nontoxic, pleasant mouth - MMM neck - no JVD heart - irregularly irregular, s1 s2, tachy, no murmur lungs - fine dry rales b/l bases, no wheeze, normal airation abd - soft, minimally distended, BS+, NT, no HSM, no peritoneal signs ext - no edema, pulses 2+ b/l psych - a/o x 3 Results & Data Results & Data Vital Signs (Past 12 Hours) Vital Signs Temp Pulse Pulse Resp BP Pulse Ox O2 Del Method 07/19/24 11:48 36.7 C 125 H 19 91/54 L 94 Room Air 07/19/24 10:31 104 H 07/19/24 08:10 36.7 C 140 H 19 94/62 L 93 Room Air 07/19/24 05:17 86/56 L 07/19/24 04:48 132 H 07/19/24 04:20 127 H 118/80 07/19/24 02:54 36.6 C 104 H 18 97/58 L 93 Room Air Laboratory Results Laboratory Results - last 24 hr 07/18/24 07/18/24 07/18/24 18:52 23:45 23:55 WBC RBC Hgb Hct MCV MCH MCHC RDW Std Deviation RDW Coeff of Aleisha Plt Count MPV Immature Gran % (Auto) Neut % (Auto) Lymph % (Auto) Riley % (Auto) Eos % (Auto) Baso % (Auto) Neut # (Auto) Lymph # (Auto) Riley # (Auto) Eos # (Auto) Baso # (Auto) Immature Gran # (Auto) Sodium 139 Potassium 3.8 Chloride 106 Carbon Dioxide 21 Anion Gap 12 H BUN 31 H Creatinine 1.97 H D Est Cr Clr Drug Dosing 32.0 eGFR 33.72 BUN/Creatinine Ratio 15.7 Glucose 153 H Lactate 3.7 H* 3.0 H* Calcium 7.5 L Magnesium Troponin I High Sens 1106.3 H* Urine Color Dark Yellow Urine Appearance Cloudy A Urine pH 5.0 Ur Specific [place] 1.025 Urine Protein Trace H Urine Glucose (UA) Negative Urine Ketones Trace H Urine Blood Negative Urine Nitrite Negative Urine Bilirubin 1+ H Urine Urobilinogen Negative Ur Leukocyte Esterase Negative Urine WBC (Auto) 0-5 Urine RBC (Auto) 6-10 H U Hyaline Cast (Auto) >20 H U Epithel Cells (Auto) 6-10 H Urine Bacteria (Auto) None Seen 07/19/24 07/19/24 07/19/24 01:59 05:58 15:10 WBC 11.65 H RBC 4.53 L Hgb 14.0 Hct 42.1 MCV 92.9 MCH 30.9 MCHC 33.3 RDW Std Deviation 44.3 RDW Coeff of Aleisha 13.0 Plt Count 201 MPV 9.8 Immature Gran % (Auto) 0.5 Neut % (Auto) 73.7 Lymph % (Auto) 9.0 Riley % (Auto) 16.4 Eos % (Auto) 0.1 Baso % (Auto) 0.3 Neut # (Auto) 8.59 H Lymph # (Auto) 1.05 L Riley # (Auto) 1.91 H Eos # (Auto) 0.01 Baso # (Auto) 0.03 Immature Gran # (Auto) 0.06 Sodium 137 137 Potassium 4.2 4.0 Chloride 111 H 110 H Carbon Dioxide 24 24 Anion Gap 2 L 3 BUN 36 H 32 H Creatinine 2.03 H 1.55 H D Est Cr Clr Drug Dosing 31.1 40.7 eGFR 32.53 44.97 BUN/Creatinine Ratio 17.7 20.6 H Glucose 119 H 109 H Lactate 2.1 H* 2.8 H* Calcium 6.6 L 7.2 L Magnesium 1.8 Troponin I High Sens Urine Color Urine Appearance Urine pH Ur Specific [place] Urine Protein Urine Glucose (UA) Urine Ketones Urine Blood Urine Nitrite Urine Bilirubin Urine Urobilinogen Ur Leukocyte Esterase Urine WBC (Auto) Urine RBC (Auto) U Hyaline Cast (Auto) U Epithel Cells (Auto) Urine Bacteria (Auto) PG Care Time/CCT Total # of Minutes Spent Total Time Spent with Patient: Total time spent is greater than 50% in coordination of care (as documented) at patient's floor/unit and/or counseling patient: Coding Level of Care Code 03486 SUB INP/OBS CARE 3/50MIN Diagnoses C. difficile colitis A04.72 Atrial fibrillation with RVR I48.91 Hypomagnesemia E83.42 Elevated troponin R79.89 Acute renal failure N17.9 Acute renal failure type: unspecified Hypocalcemia E83.51 CAD (coronary artery disease) I25.10 (5) Acute renal failure Acute renal failure type: unspecified Qualified Code(s): N17.9 - Acute kidney failure, unspecified
[2024-07-19 15:40] LABS: BUN Creatinine Ratio 20.6 (10-20); Calcium 7.2 mg/dl (8.6-10.3); Creatinine Clr Calc Pharmacy 40.7 ml/min
[2024-07-19] MEDS: CHOLESTYRAMINE LIGHT 4 GM PKT PO SCH (16:59)
[2024-07-19] MEDS: CALCIUM GLUCONATE 1,000 MG/60 ML BAG IV STA (18:15)
[2024-07-19] MEDS: AMIODARONE / D5W 360 MG/200 ML BAG IV SCH (18:24)
[2024-07-19] MEDS: CALCIUM CARBONATE 500 MG CHEWABLE TAB PO SCH (20:20)
[2024-07-19] MEDS: ADVANCED PROBIOTIC 625 MG CAPSULE PO SCH (20:20)
[2024-07-20 07:02] LABS: BUN Creatinine Ratio 23.8 (10-20); Calcium 7.1 mg/dl (8.6-10.3); Potassium 3.6 mmol/L (3.5-5.1)
[2024-07-20 08:03] LABS: Hematocrit (blood only) 39.9 % (42.0-52.0); Hemoglobin 13.4 g/dl (14.0-18.0); Mean Corpuscular Hemoglobin 30.8 pg (25.0-34.0); Mean Corpuscular Hgb Conc 33.6 g/dL (32.0-36.0); Mean Corpuscular Volume 91.7 fL (80.0-100.0); Mean Platelet Volume 10.2 fL (9.4-12.4); Platelet Count 180 K/uL (130-400); RDW Coefficient of Variation 12.9 % (11.5-14.5); RDW Standard Deviation 43.5 fL (36.4-46.3); Red Blood Count 4.35 M/uL (4.70-6.10)
[2024-07-20 09:03] LABS: Albumin Level 2.2 gm/dl (3.4-5.0)
[2024-07-20] MEDS: ERGOCALCIFEROL 1250 MCG (50,000 UNITS) CAP PO SCH (10:12)
[2024-07-20] MEDS: AMIODARONE 200 MG TAB PO SCH (12:49)
[2024-07-20] MEDS ORDERED: HYDROCODONE/ACETAMINOPHEN 7.5/325MG TAB PO PRN (15:03)
--- NOTE | 2024-07-20 16:43 | Hospitalist Progress Note ---
Date of Service July 20, 2024 Assessment & Plan (1) C. difficile colitis: Plan: severe illness as marked by acute renal failure, sepsis/lactic acidosis, etc. box-colitis seen on CT a/p no obvious risk factors for acquiring such day #3 of PO vancomycin 125mg QID despite improvement in his WBC count, renal function, etc he continues with SEVERE diarrhea - 10-15 stools/day usually by about day #3 of vanco there is some improvement - less stooling, etc. will d/c vanco; change to Dificid 200mg BID check KUB x-ray - ensure no developing colonic ileus/toxic megacolon if negative for such will allow full liquids cont contact precautions increase questran to 4gm BID cont lactinex defer on additional IV fluids repeat BMP am (2) Sepsis: Plan: 2nd to c diff infection leukocytosis resolved hemodynamically stable LUKE resolved (3) Atrial fibrillation with RVR: Plan: history of PAF and paroxysmal a.flutter converted to rapid a.fib 07/19/24 s/p amiodarone drip with bolus with conversion back to NSR overnight appreciate cardiology assistance IV amio to be changed to PO amio 400mg BID check TSH am cont Eliquis BID (4) Hypomagnesemia: Plan: s/p replacement resolved recheck level am for stability (5) Elevated troponin: Plan: 2nd to myocardial demand ischemia in setting of #1 and #2 above no evidence of ACS appreciate cardiology input (6) Acute renal failure: Plan: peak Cr 2.3 now 1 resolved 2nd to #1 above repeat BMP am (7) Hypocalcemia: Plan: 2nd diarrhea 2nd to poor PO intake 2nd to vitamin D def 2nd to low magnesium s/p IV calcium gluconate x 3 grams in total added Tums 500mg TID level slowly improving today's total calcium level corrected for hypoalbuminemia is low 8's replace low vitamin D (8) CAD (coronary artery disease): Plan: typically on lisinopril, atorvastatin, aspirin, and nitro prn was holding lisinopril due to low BPs and ARF but can likely resume tomorrow can continue asa and atorvastatin no ischemic symptoms at this time (9) Vitamin D deficiency: Plan: 25-OH vit D level = 8 may be contributing in some fashion to his hypocalcemia start ergocalciferol 49285 units weekly x 8 weeks Plan DVT proph - Eliquis PT/OT appreciate cardiology assistance; care d/w cardiology today, Dr Lugo attempted to call pt's this evening - 07/20 - phone rang & rang, unable to leave message Admission and Anticipated Discharge Date Admission Date: July 18, 2024 Subjective overnight patient converted from a.fib to NSR amio drip stopped by cardiology; converted to PO amiodarone patient reports ongoing abdominal discomfort - especially the lower abdomen no vomiting tolerating clears, but appetite remains poor continues with severe diarrhea - has had at least 12 liquid stools since waking up this am having stools all night as well consistency of stool has not changed no dizziness or lightheadedness Review of Systems Review of Systems: gen - no fevers or chills cv - no chest pain or orthopnea pulm - no dyspnea GI - no nausea Physical Exam Physical Exam: gen - NAD, but looks tired mouth - MMM neck - no JVD heart - RRR, s1 s2, no murmur lungs - fine dry rales b/l bases - a little worse today, no wheeze abd - soft, mildly distended, BS+, NT, no HSM, no peritoneal signs ext - 1-2+ edema b/l shins & feet, pulses 2+ b/l psych - a/o x 3 Results & Data Results & Data Vital Signs (Past 12 Hours) Vital Signs Temp Pulse Resp BP Pulse Ox O2 Del Method 07/20/24 14:41 69 16 132/66 97 Room Air 07/20/24 10:52 61 16 148/75 H 96 Room Air 07/20/24 07:25 36.4 C L 61 16 133/71 98 Room Air Laboratory Results Laboratory Results - last 24 hr 07/20/24 05:34 WBC 8.40 RBC 4.35 L Hgb 13.4 L Hct 39.9 L MCV 91.7 MCH 30.8 MCHC 33.6 RDW Std Deviation 43.5 RDW Coeff of Aleisha 12.9 Plt Count 180 MPV 10.2 Sodium 138 Potassium 3.6 Chloride 111 H Carbon Dioxide 23 Anion Gap 4 BUN 25 H Creatinine 1.05 D Est Cr Clr Drug Dosing 60.0 eGFR 71.76 BUN/Creatinine Ratio 23.8 H Glucose 96 Calcium 7.1 L Albumin 2.2 L 25-OH Vitamin D Total 8.0 L PG Care Time/CCT Total # of Minutes Spent Total Time Spent with Patient: Total time spent is greater than 50% in coordination of care (as documented) at patient's floor/unit and/or counseling patient: Coding Level of Care Code 38753 SUB INP/OBS CARE 3/50MIN Diagnoses C. difficile colitis A04.72 Sepsis A41.9 Atrial fibrillation with RVR I48.91 Hypomagnesemia E83.42 Elevated troponin R79.89 Acute renal failure N17.9 Acute renal failure type: unspecified Hypocalcemia E83.51 CAD (coronary artery disease) I25.10 Vitamin D deficiency E55.9 (6) Acute renal failure Acute renal failure type: unspecified Qualified Code(s): N17.9 - Acute kidney failure, unspecified
[2024-07-20] MEDS: FIDAXOMICIN 200 MG TAB PO ONE (17:47)
--- NOTE | 2024-07-20 17:48 | XRay Report ---
EXAM: Radiograph of the Abdomen 1 View INDICATION: Severe C. difficile colitis TECHNIQUE: Frontal supine view of the abdomen/pelvis. COMPARISON: 07/18/2024 FINDINGS: Limitations: None. Gastrointestinal tract: Compared to the head golf coach radiograph of the prior CT, bowel thickening and ileus is improved. Organs: Visualized organ shadows appear grossly normal. Bones/joints: Degenerative changes noted throughout the spine. No acute osseous abnormality seen. Soft tissues: No abnormality noted. No radiopaque foreign body noted. IMPRESSION: Compared to the head golf coach radiograph of the prior CT, bowel thickening and ileus appears improved. CT would more accurately compare given the prior modality was CT. ACT 112: Negative or not required by law. Electronically signed by Cris Carter 07-20-2024 5:48 PM
--- NOTE | 2024-07-20 17:49 | Cardiology Progress Note ---
Date of Service July 20, 2024 Assessment & Plan (1) Paroxysmal atrial fibrillation: (2) CAD (coronary artery disease): (3) Hypertension: (4) Dyslipidemia: Plan ASSESSMENT/PLAN: 1. Paroxysmal atrial fibrillation: Appears to be asymptomatic. Converted while on amiodarone IV. Remains in sinus rhythm today. Can convert to amiodarone 400 mg p.o. twice daily for 8 days, and then 200 mg daily. Monitor transaminase levels and TSH while on amiodarone. TSH ordered for tomorrow to update labs. Monitor ECG periodically. Continue anticoagulation for stroke risk reduction. Monitor CBC and renal function while on Eliquis. 2. CAD s/p prior RCA PCI (01/05/2010): No angina. Continue aspirin 81 mg daily indefinitely. Continue high intensity statin therapy. 3. Hypertension: Blood pressure was hypotensive on 07/19/2024 while in atrial fibrillation but mostly normotensive today. Continue current plan as noted. 4. Dyslipidemia: Continue high intensity statin therapy. 5. Disposition: Follow-up with Dr. 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 Please call with any further questions or concerns. Cardiology will likely sign off for now. Plan of care discussed with primary hospitalist, Dr. Cordon. Admission and Anticipated Discharge Date Admission Date: July 18, 2024 Subjective Patient was seen this morning. He still has diarrhea but improving today. He denies melena, hematochezia, hematuria. He denies palpitations, chest pain, shortness of breath. He did not recall a significant change whether he was in atrial fibrillation or sinus rhythm. He was unaccompanied. Physical Exam Physical Exam: Gen.: No acute distress. Alert. HEENT: Anicteric sclera. Neck: No JVD. Cardiac: Regular. Normal S1-S2. No murmurs, rubs, or gallops. Pulmonary: Clear to auscultation bilaterally without wheezes, rales, or rhonchi. Abdomen: Soft, nontender, nondistended, with normoactive bowel sounds. No bruits noted. Extremities: 2+ radial pulses bilaterally. 2+ posterior tibialis pulses bilaterally. 1+ bilateral lower extremity edema. No cyanosis. Results & Data Vital Signs (Past 12 Hours) Vital Signs Temp Pulse Resp BP Pulse Ox O2 Del Method 07/20/24 14:41 69 16 132/66 97 Room Air 07/20/24 10:52 61 16 148/75 H 96 Room Air 07/20/24 07:25 36.4 C L 61 16 133/71 98 Room Air Intake & Output 07/18/24 07/19/24 07/20/24 07/21/24 06:59 06:59 06:59 06:59 Intake Total 6169.850 / 6169.850 3590.917 / 3590.917 1302.705 / 1302.705 Output Total Balance 6169.850 / 6169.850 3584.917 / 3584.917 1294.705 / 1294.705 Weight 190 lb 11.198 oz 190 lb 7.67 oz Laboratory Results Laboratory Results - last 24 hr 07/20/24 05:34 WBC 8.40 RBC 4.35 L Hgb 13.4 L Hct 39.9 L MCV 91.7 MCH 30.8 MCHC 33.6 RDW Std Deviation 43.5 RDW Coeff of Aleisha 12.9 Plt Count 180 MPV 10.2 Sodium 138 Potassium 3.6 Chloride 111 H Carbon Dioxide 23 Anion Gap 4 BUN 25 H Creatinine 1.05 D Est Cr Clr Drug Dosing 60.0 eGFR 71.76 BUN/Creatinine Ratio 23.8 H Glucose 96 Calcium 7.1 L Albumin 2.2 L 25-OH Vitamin D Total 8.0 L Diagnostic Findings Labs reviewed and notable for slight anemia, improved renal function, back to near baseline, normal potassium, normal magnesium, normal transaminase levels. Telemetry personally reviewed: Sinus rhythm, converting from atrial fibrillation to sinus rhythm on 07/19/2024 at 1805. Echo report reviewed from 07/18/2024: Normal LV systolic function and wall motion. Moderate LVH. No significant valvular abnormalities. Medications Administered Current Inpatient Medications Acetaminophen (Acetaminophen 325 Mg Tab) 650 mg PO Q4H PRN PRN Reason: Pain or Fever Stop: 08/17/24 16:20 Hydrocodone Bitart/Acetaminophen (Hydrocodone/Acetaminophen 7.5/325mg Tab) 1 tab PO Q6H PRN PRN Reason: Pain Stop: 08/03/24 15:02 Amiodarone HCl (Amiodarone 200 Mg Tab) 400 mg PO BIDM OBIE Stop: 08/19/24 12:24 Last Admin: 07/20/24 17:47 Dose: 400 mg Apixaban (Apixaban 5 Mg Tablet) 5 mg PO BID [facility] Stop: 08/19/24 20:59 Aspirin (Aspirin 81 Mg Ectab) 81 mg PO QAM [facility] Stop: 08/18/24 08:59 Last Admin: 07/20/24 09:44 Dose: 81 mg Atorvastatin Calcium (Atorvastatin 40 Mg Tab) 80 mg PO QAM [facility] Stop: 08/18/24 08:59 Last Admin: 07/20/24 09:44 Dose: 80 mg Calcium Carbonate (Calcium Carbonate 500 Mg Chewable Tab) 500 mg PO TID [facility] Stop: 08/18/24 20:59 Last Admin: 07/20/24 14:48 Dose: Not Given Cholestyramine Resin (Cholestyramine Light 4 Gm Pkt) 4 gm PO BID@1000,2200 [facility] Stop: 08/19/24 21:59 Ergocalciferol (Ergocalciferol 1250 Mcg (50,000 Units) Cap) 1,250 mcg PO We@0900 [facility] Stop: 08/19/24 08:59 Last Admin: 07/20/24 10:12 Dose: 1,250 mcg Fidaxomicin (Fidaxomicin 200 Mg Tab) 200 mg PO BID [facility] Stop: 07/30/24 20:59 Lactobacillus Acidophilus (Advanced Probiotic 625 Mg Capsule) 1,250 mg PO DAILY [facility] Stop: 08/18/24 18:29 Last Admin: 07/20/24 09:44 Dose: 1,250 mg PG Care Time/CCT Total # of Minutes Spent Total Time Spent with Patient: Total time spent is greater than 50% in coordination of care (as documented) at patient's floor/unit and/or counseling patient: Coding Level of Care Code 11306 SUB INP/OBS CARE 3/50MIN Diagnoses Paroxysmal atrial fibrillation I48.0 CAD (coronary artery disease) I25.10 Hypertension I10 Dyslipidemia E78.5
[2024-07-20] MEDS: APIXABAN 5 MG TABLET PO SCH (21:15)
[2024-07-20] MEDS: CHOLESTYRAMINE LIGHT 4 GM PKT PO SCH (21:16)
[2024-07-20] MEDS: FIDAXOMICIN 200 MG TAB PO SCH (21:16)
[2024-07-21 06:30] LABS: BUN Creatinine Ratio 18.3 (10-20); Calcium 7.2 mg/dl (8.6-10.3); Creatinine Clr Calc Pharmacy 67.6 ml/min; Magnesium 1.7 mg/dl (1.7-2.4); Potassium 3.4 mmol/L (3.5-5.1)
[2024-07-21 06:44] LABS: Thyroid Stimulating Hormone 3.756 uIu/ml (0.300-4.500)
[2024-07-21] MEDS: POTASSIUM CHLORIDE CRTAB 20 MEQ TABCR PO SCH (09:20)
[2024-07-21] MEDS: MAGNESIUM SULFATE / D5W 1 GM/100 ML BAG IV ONE (09:21)
--- NOTE | 2024-07-21 18:22 | Hospitalist Progress Note ---
Date of Service July 21, 2024 Assessment & Plan (1) C. difficile colitis: Plan: severe illness as marked by acute renal failure, sepsis/lactic acidosis, etc. box-colitis seen on CT a/p no obvious risk factors for acquiring such - thus "community acquired" despite 3-4 days of PO vancomycin 125mg QID he was not having improvement in the frequency or character of his stools/diarrhea changed to Dificid 200mg BID - day #2 of 10 checked KUB x-ray 07/20 -- no colonic ileus/toxic megacolon cont contact precautions cont questran to 4gm BID cont lactinex defer on additional IV fluids - he is drinking well & maintaining hydration with normal BUN & Cr today remains on full liquids - would not advance today (2) Sepsis: Plan: 2nd to c diff infection - sepsis resolved leukocytosis resolved hemodynamically stable LUKE resolved (3) Atrial fibrillation with RVR: Plan: past history of PAF and paroxysmal a.flutter converted to rapid a.fib 07/19/24 s/p amiodarone drip with bolus with conversion back to NSR 07/20/24 IV amio changed to PO amio 400mg BID on 07/20/24 TSH wnl cont Eliquis BID appreciate cardiology assistance (4) Hypomagnesemia: Plan: s/p replacement resolved level today 1.7 - elected to give more IV mag in light of hypokalemia (5) Elevated troponin: Plan: 2nd to myocardial demand ischemia in setting of #1 and #2 above no evidence of ACS appreciate cardiology input (6) Acute renal failure: Plan: peak Cr 2.3 now 0.9 resolved 2nd to #1 above repeat BMP am (7) Hypocalcemia: Plan: 2nd diarrhea 2nd to poor PO intake 2nd to vitamin D def 2nd to low magnesium s/p IV calcium gluconate x 3 grams in total since admission then added Tums 500mg TID level slowly improving today's total calcium level corrected for hypoalbuminemia is still low 8's replace low vitamin D cont Tums (8) CAD (coronary artery disease): Plan: typically on lisinopril, atorvastatin, aspirin, and nitro prn can resume lisinopril today can continue asa and atorvastatin no ischemic symptoms at this time (9) Vitamin D deficiency: Plan: 25-OH vit D level = 8 may be contributing in some fashion to his hypocalcemia start ergocalciferol 65617 units weekly x 8 weeks Plan DVT proph - Eliquis Edema of LEs - likely due to mod-severe hypoalbuminemia - would not give diuretic in light of recent LUKE and ongoing diarrhea edema not bothersome does not examine in CHF PT/OT evals done - can return home at d/c updated pt's extensively at bedside today -- 07/21 Admission and Anticipated Discharge Date Admission Date: July 18, 2024 Subjective no abd pain no cramps still with mild bloating having some burping/belching tolerating full liquids no nausea/emesis main complaint is ongoing diarrhea still liquid; not forming yet going sometimes every hour on the hour tele - NSR overnight at bedside; she was updated Review of Systems Review of Systems: gen - energy is improved; weakness improved; no fevers/chills cv - no chest pain pulm - no dyspnea Physical Exam Physical Exam: gen - NAD, looks better today mouth - MMM neck - no JVD heart - RRR, s1 s2, no murmur lungs - mild fine dry rales b/l bases, no wheeze abd - soft, still mildly distended, BS+, NT, no HSM, no peritoneal signs ext - 1+ edema b/l shins & feet, pulses 2+ b/l psych - a/o x 3 Results & Data Results & Data Vital Signs (Past 12 Hours) Vital Signs Temp Pulse Pulse Resp BP BP Pulse Ox 07/21/24 15:51 36.9 C 66 17 154/62 H 94 07/21/24 14:00 70 07/21/24 10:54 36.4 C L 68 17 148/83 H 95 07/21/24 07:53 54 L 07/21/24 07:39 36.5 C 75 16 155/83 H 94 O2 Del Method 07/21/24 15:51 Room Air 07/21/24 14:00 07/21/24 10:54 Room Air 07/21/24 07:53 07/21/24 07:39 Room Air Laboratory Results Laboratory Results - last 24 hr 07/21/24 05:59 Sodium 138 Potassium 3.4 L Chloride 109 H Carbon Dioxide 24 Anion Gap 5 BUN 17 Creatinine 0.93 Est Cr Clr Drug Dosing 67.6 eGFR 83.01 BUN/Creatinine Ratio 18.3 Glucose 91 Calcium 7.2 L Magnesium 1.7 TSH 3.756 PG Care Time/CCT Total # of Minutes Spent Total Time Spent with Patient: Total time spent is greater than 50% in coordination of care (as documented) at patient's floor/unit and/or counseling patient: Coding Level of Care Code 05517 SUB INP/OBS CARE 2/35MIN Diagnoses C. difficile colitis A04.72 Sepsis A41.9 Atrial fibrillation with RVR I48.91 Hypomagnesemia E83.42 Elevated troponin R79.89 Acute renal failure N17.9 Acute renal failure type: unspecified Hypocalcemia E83.51 CAD (coronary artery disease) I25.10 Vitamin D deficiency E55.9 (6) Acute renal failure Acute renal failure type: unspecified Qualified Code(s): N17.9 - Acute kidney failure, unspecified
[2024-07-21] MEDS: lisinopril 5 MG TAB PO ONE (21:04)
--- NOTE | 2024-07-22 06:08 | Electrocardiogram Report ---
Test Reason : Blood Pressure : */* mmHG Vent. Rate : 82 BPM Atrial Rate : 82 BPM P-R Int : 158 ms QRS Dur : 92 ms QT Int : 466 ms P-R-T Axes : 76 -26 50 degrees QTcB Int : 544 ms Sinus rhythm with Premature atrial complexes Septal infarct , age undetermined Nonspecific ST abnormality Prolonged QT Abnormal ECG When compared with ECG of 18-Jul-2024 10:47, Premature atrial complexes are now Present Septal infarct is now Present Nonspecific T wave abnormality no longer evident in Inferior leads QT has lengthened Confirmed by Volodymyr Lugo ([id number]) on 07/22/2024 6:07:53 AM Referred By: REFERRED SELF Confirmed By: Volodymyr Lugo
[2024-07-22 06:51] LABS: Hematocrit (blood only) 42.3 % (42.0-52.0); Hemoglobin 14.5 g/dl (14.0-18.0); Mean Corpuscular Hemoglobin 30.8 pg (25.0-34.0); Mean Corpuscular Hgb Conc 34.3 g/dL (32.0-36.0); Mean Corpuscular Volume 89.8 fL (80.0-100.0); Mean Platelet Volume 9.8 fL (9.4-12.4); Platelet Count 212 K/uL (130-400); RDW Coefficient of Variation 12.7 % (11.5-14.5); RDW Standard Deviation 42.3 fL (36.4-46.3); Red Blood Count 4.71 M/uL (4.70-6.10); White Blood Count 6.65 K/ul (4.8-10.8)
[2024-07-22 07:13] LABS: BUN Creatinine Ratio 14.3 (10-20); Calcium 7.3 mg/dl (8.6-10.3); Creatinine Clr Calc Pharmacy 74.9 ml/min; Magnesium 1.7 mg/dl (1.7-2.4); Potassium 3.5 mmol/L (3.5-5.1)
[2024-07-22] MEDS: lisinopril 5 MG TAB PO SCH (08:31)
--- NOTE | 2024-07-22 19:18 | Hospitalist Progress Note ---
Date of Service July 22, 2024 Assessment & Plan (1) C. difficile colitis: Plan: severe illness as marked by acute renal failure, sepsis/lactic acidosis, etc. box-colitis seen on CT a/p no obvious risk factors for acquiring such - thus "community acquired" despite 3-4 days of PO vancomycin 125mg QID he was not having improvement in the frequency or character of his stools/diarrhea changed to Dificid 200mg BID on 07/20/24 - thus day #3 of 10 checked KUB x-ray 07/20 -- no colonic ileus/toxic megacolon cont contact precautions cont questran 4gm BID cont lactinex advance diet to low fiber BMP in am of note - we completed an application for patient assistance via the carton wrapper for Dificid THIS WAS APPROVED late today the Dificid course (7 days worth) will be mailed to his home on Thursday, 07/26 (2) Sepsis: Plan: 2nd to c diff infection - sepsis resolved leukocytosis resolved hemodynamically stable LUKE resolved (3) Atrial fibrillation with RVR: Plan: past history of PAF and paroxysmal a.flutter converted to rapid a.fib 07/19/24 s/p amiodarone drip with bolus with conversion back to NSR 07/20/24 IV amio changed to PO amio 400mg BID on 07/20/24 cont amio 400mg BID for 6 more days, then change to 200mg/day thereafter TSH wnl cont Eliquis BID appreciate cardiology assistance will need close f/u post-discharge with cardiology (4) Hypomagnesemia: Plan: s/p replacement resolved level today 1.7 (5) Elevated troponin: Plan: 2nd to myocardial demand ischemia in setting of #1 and #2 above no evidence of ACS appreciate cardiology input (6) Acute renal failure: Plan: peak Cr 2.3 now 0.8 resolved 2nd to #1 above repeat BMP am (7) Hypocalcemia: Plan: 2nd diarrhea 2nd to poor PO intake 2nd to vitamin D def 2nd to low magnesium s/p IV calcium gluconate x 3 grams in total since admission then added Tums 500mg TID level slowly improving today's total calcium level 7.3 corrected for hypoalbuminemia is still low 8's replace low vitamin D cont Tums (8) CAD (coronary artery disease): Plan: cont lisinopril, atorvastatin, aspirin, and nitro prn no ischemic symptoms at this time (9) Vitamin D deficiency: Plan: 25-OH vit D level = 8 may be contributing in some fashion to his hypocalcemia start ergocalciferol 87152 units weekly x 8 weeks Plan DVT proph - Eliquis Edema of LEs - likely due to mod-severe hypoalbuminemia - would not give diuretic in light of recent LUKE and ongoing diarrhea edema not bothersome does not examine in CHF perhaps can give a dose of PO lasix starting tomorrow PT/OT evals done - can return home at d/c updated pt's extensively at bedside 07/21 attempted to call pt's at home phone # listed in chart; phone rang & rang, no answer, unable to leave message pt assistance program for Dificid -- application completed, APPROVED! home this weekend Admission and Anticipated Discharge Date Admission Date: July 18, 2024 Subjective tele overnight - NSR patient reports stools are "trying to firm up" still with several stools since waking up this am but frequency of the stooling is less just some mild abdominal cramps after having a stool no pain no nausea/emesis still with LE edema but denies any dyspnea Review of Systems Review of Systems: gen - no fevers or chills cv - no chest pain pulm - no SALAZAR Physical Exam Physical Exam: gen - NAD, sitting at side of bed, looks good mouth - MMM neck - no JVD heart - RRR, s1 s2, no murmur lungs - minimal fine dry rales b/l bases, no wheeze abd - soft, ND, BS+, NT, no HSM, no peritoneal signs ext - <1+ edema b/l shins & feet, pulses 2+ b/l psych - a/o x 3 Results & Data Results & Data Vital Signs (Past 12 Hours) Vital Signs Temp Pulse Pulse Resp BP BP Pulse Ox 07/22/24 15:50 79 07/22/24 14:53 36.6 C 61 18 132/67 96 07/22/24 11:17 36.9 C 62 18 128/75 07/22/24 08:10 36.5 C 72 18 147/75 H 95 07/22/24 07:20 65 O2 Del Method 07/22/24 15:50 07/22/24 14:53 07/22/24 11:17 Room Air 07/22/24 08:10 Room Air 07/22/24 07:20 Laboratory Results Laboratory Results - last 24 hr 07/22/24 05:35 WBC 6.65 RBC 4.71 Hgb 14.5 Hct 42.3 MCV 89.8 MCH 30.8 MCHC 34.3 RDW Std Deviation 42.3 RDW Coeff of Aleisha 12.7 Plt Count 212 MPV 9.8 Sodium 139 Potassium 3.5 Chloride 110 H Carbon Dioxide 24 Anion Gap 5 BUN 12 Creatinine 0.84 Est Cr Clr Drug Dosing 74.9 eGFR 88.16 BUN/Creatinine Ratio 14.3 Glucose 93 Calcium 7.3 L Magnesium 1.7 PG Care Time/CCT Total # of Minutes Spent Total Time Spent with Patient: Total time spent is greater than 50% in coordination of care (as documented) at patient's floor/unit and/or counseling patient: Coding Level of Care Code 01775 SUB INP/OBS CARE 3/50MIN Diagnoses C. difficile colitis A04.72 Sepsis A41.9 Atrial fibrillation with RVR I48.91 Hypomagnesemia E83.42 Elevated troponin R79.89 Acute renal failure N17.9 Acute renal failure type: unspecified Hypocalcemia E83.51 CAD (coronary artery disease) I25.10 Vitamin D deficiency E55.9 (6) Acute renal failure Acute renal failure type: unspecified Qualified Code(s): N17.9 - Acute kidney failure, unspecified
[2024-07-23 07:32] LABS: BUN Creatinine Ratio 11.1 (10-20); Calcium 7.3 mg/dl (8.6-10.3); Creatinine Clr Calc Pharmacy 69.9 ml/min; Potassium 3.6 mmol/L (3.5-5.1)
[2024-07-23] MEDS: FUROSEMIDE 20 MG TAB PO ONE (09:47)
[2024-07-23] MEDS: MAGNESIUM SULFATE / D5W 1 GM/100 ML BAG IV ONE (09:47)
--- NOTE | 2024-07-23 15:43 | Hospitalist Progress Note ---
Date of Service July 23, 2024 Assessment & Plan (1) C. difficile colitis: Plan: severe illness as marked by acute renal failure, sepsis/lactic acidosis, etc. box-colitis seen on CT a/p no obvious risk factors for acquiring such - thus community acquired despite 3-4 days of PO vancomycin 125mg QID he was not having improvement in the frequency or character of his stools/diarrhea earlier in the stay thus, changed to Dificid 200mg BID on 07/20/24 - day #4 checked KUB x-ray 07/20 -- no colonic ileus/toxic megacolon cont contact precautions cont questran 4gm BID cont lactinex low fiber diet BMP in am of note - we completed an application for patient assistance via the rn cardiology for Dificid THIS WAS APPROVED 07/22/24 the Dificid course (7 days worth) will be mailed to his home on Thursday, 07/26 (2) Sepsis: Plan: 2nd to c diff infection sepsis resolved leukocytosis resolved hemodynamically stable LUKE resolved (3) Atrial fibrillation with RVR: Plan: past history of PAF and paroxysmal a.flutter converted to rapid a.fib 07/19/24 s/p amiodarone drip with bolus with conversion back to NSR 07/20/24 IV amio changed to PO amio 400mg BID on 07/20/24 cont amio 400mg BID for 5 more days, then change to 200mg/day thereafter TSH wnl cont Eliquis BID appreciate cardiology assistance will need close f/u post-discharge with cardiology (4) Hypomagnesemia: Plan: s/p replacement resolved (5) Elevated troponin: Plan: 2nd to myocardial demand ischemia in setting of #1 and #2 above no evidence of ACS appreciate cardiology input (6) Acute renal failure: Plan: peak Cr 2.3 now 0.9 resolved 2nd to #1 above repeat BMP am (7) Hypocalcemia: Plan: 2nd diarrhea 2nd to poor PO intake 2nd to vitamin D def 2nd to low magnesium s/p IV calcium gluconate x 3 grams in total since admission then added Tums 500mg TID levels improved today's total calcium level 7.3 repeat calcium with albumin level in am tomorrow replace low vitamin D cont Tums (8) CAD (coronary artery disease): Plan: cont lisinopril, atorvastatin, aspirin, and nitro prn no ischemic symptoms at this time (9) Vitamin D deficiency: Plan: 25-OH vit D level = 8 may be contributing in some fashion to his hypocalcemia start ergocalciferol 38915 units weekly x 8 weeks Plan DVT proph - Eliquis Edema of LEs - likely due to mod-severe hypoalbuminemia - lasix 20mg po x 1 labs in am albumin level in am PT/OT evals done - can return home at d/c updated pt's extensively at bedside 07/21 and today pt assistance program for Dificid -- application completed, APPROVED home tomorrow Admission and Anticipated Discharge Date Admission Date: July 18, 2024 Subjective patient tolerating low fiber diet no abd pain no bloating still having frequent stools but they are very small in size the # of stools are much better in comparison to admission tele overnight - NSR orientation of P axis has been alternating between positive and negative at times Review of Systems Review of Systems: gen - no fevers, chills or fatigue/weakness; ambulating cv - no cp, no orthopnea pulm - no dyspnea or SALAZAR GI - no vomiting neuro - no dizziness or lightheadedness Physical Exam Physical Exam: gen - NAD, laying in bed comfortably mouth - MMM neck - no JVD heart - RRR, s1 s2, no murmur lungs - CTA B/l abd - soft, ND, BS+, NT, no HSM, no peritoneal signs ext - <1+ edema b/l shins & feet, pulses 2+ b/l psych - a/o x 3 Results & Data Results & Data Vital Signs (Past 12 Hours) Vital Signs Temp Pulse Pulse Resp BP BP Pulse Ox 07/23/24 14:23 63 07/23/24 11:35 36.5 C 63 16 135/83 93 07/23/24 08:00 58 L 07/23/24 07:57 36.7 C 60 20 130/65 95 O2 Del Method 07/23/24 14:23 07/23/24 11:35 Room Air 07/23/24 08:00 07/23/24 07:57 Room Air Laboratory Results Laboratory Results - last 24 hr 07/23/24 06:26 Sodium 137 Potassium 3.6 Chloride 110 H Carbon Dioxide 23 Anion Gap 4 BUN 10 Creatinine 0.90 Est Cr Clr Drug Dosing 69.9 eGFR 86.34 BUN/Creatinine Ratio 11.1 Glucose 90 Calcium 7.3 L PG Care Time/CCT Total # of Minutes Spent Total Time Spent with Patient: Total time spent is greater than 50% in coordination of care (as documented) at patient's floor/unit and/or counseling patient: Coding Level of Care Code 60816 SUB INP/OBS CARE 2/35MIN Diagnoses C. difficile colitis A04.72 Sepsis A41.9 Atrial fibrillation with RVR I48.91 Hypomagnesemia E83.42 Elevated troponin R79.89 Acute renal failure N17.9 Acute renal failure type: unspecified Hypocalcemia E83.51 CAD (coronary artery disease) I25.10 Vitamin D deficiency E55.9 (6) Acute renal failure Acute renal failure type: unspecified Qualified Code(s): N17.9 - Acute kidney failure, unspecified
[2024-07-24 06:47] LABS: Basophils # (auto) 0.04 K/uL (0.00-0.20); Basophils % (auto) 0.6 %; Eosinophils # (auto) 0.14 K/uL (0.00-0.50); Eosinophils % (auto) 2.1 %; Hematocrit (blood only) 40.1 % (42.0-52.0); Hemoglobin 13.3 g/dl (14.0-18.0); Immature Granulocytes # (auto) 0.24 K/uL (0.01-0.20); Immature Granulocytes % (auto) 3.5 %; Lymphocytes # (auto) 1.05 K/uL (1.20-3.40); Lymphocytes % (auto) 15.4 %; Mean Corpuscular Hemoglobin 30.2 pg (25.0-34.0); Mean Corpuscular Hgb Conc 33.2 g/dL (32.0-36.0); Mean Corpuscular Volume 91.1 fL (80.0-100.0); Mean Platelet Volume 9.5 fL (9.4-12.4); Monocytes # (auto) 1.31 K/uL (0.11-0.59); Monocytes % (auto) 19.2 %; Neutrophils # (auto) 4.03 K/uL (1.40-6.50); Neutrophils % (auto) 59.2 %; Platelet Count 211 K/uL (130-400); RDW Standard Deviation 43.1 fL (36.4-46.3); White Blood Count 6.81 K/ul (4.8-10.8)
[2024-07-24 07:07] LABS: Albumin Level 2.6 gm/dl (3.4-5.0); BUN Creatinine Ratio 9.3 (10-20); C Reactive Protein 0.99 mg/dl (0-0.5); Calcium 7.3 mg/dl (8.6-10.3); Creatinine Clr Calc Pharmacy 64.7 ml/min; Magnesium 1.6 mg/dl (1.7-2.4); Potassium 3.7 mmol/L (3.5-5.1)
[2024-07-24] MEDS: MAGNESIUM SULFATE / D5W 1 GM/100 ML BAG IV SCH (09:14)
[2024-07-24] MEDS: FUROSEMIDE 20 MG TAB PO ONE (09:15)
[2024-07-24 11:19] VITALS: RESP 16; TEMP 97.7; O2SAT 96
--- NOTE | 2024-07-24 13:40 | Discharge Summary ---
Discharge Summary Date of Service July 24, 2024 Principal Dx & Hospital Course #1 = Principal Diagnosis (1) C. difficile colitis: severe illness as marked by acute renal failure, sepsis/lactic acidosis, etc. box-colitis seen on CT a/p no obvious risk factors for acquiring such - thus community acquired despite 3-4 days of PO vancomycin 125mg QID he was not having improvement in the frequency or character of his stools/diarrhea earlier in the stay thus, changed to Dificid 200mg BID on 07/20/24 - day #4 checked KUB x-ray 07/20 -- no colonic ileus/toxic megacolon cont contact precautions cont questran 4gm BID cont lactinex low fiber diet BMP in am of note - we completed an application for patient assistance via the freezing machine operator for Dificid THIS WAS APPROVED 07/22/24 the Dificid course (7 days worth) will be mailed to his home on Thursday, 07/26 (2) Sepsis: 2nd to c diff infection sepsis resolved leukocytosis resolved hemodynamically stable LUKE resolved (3) Atrial fibrillation with RVR: past history of PAF and paroxysmal a.flutter converted to rapid a.fib 07/19/24 s/p amiodarone drip with bolus with conversion back to NSR 07/20/24 IV amio changed to PO amio 400mg BID on 07/20/24 cont amio 400mg BID for 5 more days, then change to 200mg/day thereafter TSH wnl cont Eliquis BID appreciate cardiology assistance will need close f/u post-discharge with cardiology (4) Hypomagnesemia: s/p replacement resolved (5) Elevated troponin: 2nd to myocardial demand ischemia in setting of #1 and #2 above no evidence of ACS appreciate cardiology input (6) Acute renal failure: peak Cr 2.3 now 0.9 resolved 2nd to #1 above repeat BMP am (7) Hypocalcemia: 2nd diarrhea 2nd to poor PO intake 2nd to vitamin D def 2nd to low magnesium s/p IV calcium gluconate x 3 grams in total since admission then added Tums 500mg TID levels improved today's total calcium level 7.3 repeat calcium with albumin level in am tomorrow replace low vitamin D cont Tums (8) CAD (coronary artery disease): cont lisinopril, atorvastatin, aspirin, and nitro prn no ischemic symptoms at this time (9) Vitamin D deficiency: 25-OH vit D level = 8 may be contributing in some fashion to his hypocalcemia start ergocalciferol 94254 units weekly x 8 weeks Plan DVT proph - Eliquis Edema of LEs - likely due to mod-severe hypoalbuminemia - lasix 20mg po x 1 labs in am albumin level in am PT/OT evals done - can return home at d/c updated pt's extensively at bedside 07/21 and today pt assistance program for Dificid -- application completed, APPROVED home tomorrow Admission HPI Per Admitting Provider Very pleasant 79-year-old male who back on or about July 01, 2024 saw his PCP for some loose stools and left lower quadrant pain. At that time he was empirically started on Flagyl and Cipro for possible diverticulitis. He completed a 10-day course of that ending on July 11, 2024. Has been doing well up until about 36 hours ago when he developed severe watery diarrhea. He presented to the ER for further evaluation and treatment today. Viral respiratory panel was negative. Laboratory studies had some gross abnormalities including a troponin of 1022, magnesium of 1.5, white count of almost 18,000, creatinine of 2.6 with a baseline of 0.8-0.9. CT of the abdomen pelvis demonstrated colitis versus diverticulitis. Patient received H2 herb, he received some lactated Ringer's magnesium replacement, 2 g,. We are called admit the patient for evaluation and treatment of colitis/diverticulitis. Stool bio fire is pending samples been sent. We have ordered a stat aspirin 324 given the elevated troponin. The patient did not take his morning Eliquis. We spoke personally with cardiology will see the patient in consultation they recommend he continue his Eliquis given no ischemic EKG changes. Do an echocardiogram. Pending a stool bio fire if he does have C. difficile we will begin oral vancomycin. Will isolate empirically pending stool BioFire result Discharge Exam gen - NAD, laying in bed comfortably mouth - MMM neck - no JVD heart - RRR, s1 s2, no murmur lungs - CTA B/l abd - soft, ND, BS+, NT, no HSM, no peritoneal signs ext - <1+ edema b/l shins & feet, pulses 2+ b/l psych - a/o x 3 Discharge Plan Discharge Items Patient Disposition: Home - Self-Care Reason For Visit: Severe diarrhea Discharge Diagnosis: 1. severe c diff colitis - improving 2. severe diarrhea - due to #1 3. acute kidney injury/acute kidney failure - resolved 4. rapid atrial fibrillation - resolved 5. low magnesium - resolved 6. low potassium - resolved 7. low calcium - improving 8. malnutrition - due to #1 - improved 9. edema of legs - due to malnutrition/low blood protein levels - improving 10. chronic diverticulosis/diverticular disease - nothing to do at this time 11. vitamin D deficiency Activity: As commented below Activity Comment: gradually increase activities over the next week Exercise/Sports: Wait until after follow-up appointment Non-emergency contact: Primary Care Provider Call non-emergency contact if: you have any medication questions, your symptoms worsen and you have a fever Follow-up/Referrals: Jarocho Esquivel Jr, MD, FACC [Physician] - (within 2 weeks for your a.fib ) Basim Gomez, [Primary Care Provider] - (within 5-7 days ) Diet: Low Fiber Addtl Attending Provider Instructions: Mr Chappell, You were hospitalized due to severe diarrhea. CT scan of your abdomen showed that the entire colon was sick & inflamed. We call this "colitis." There are a number of different causes of colitis including infection. You indeed had a severe infection due to clostridium difficile, also known as "c diff." You initially received vancomycin oral antibiotic for the c.diff. However, even after several days of this antibiotic, you were not improving. Thus, we changed you to a different antibiotic called "Dificid" on 07/20/24. You improved nicely with the Dificid. Your stay was complicated by rapid atrial fibrillation. [facility] assisted with the treatment of your atrial fibrillation. You ultimately were treated with a medicine called "amiodarone" which converted your atrial fibrillation back to normal rhythm. Since the amiodarone was started you have remained in normal rhythm. Your kidney function has returned to normal. Your electrolytes have returned to normal. You received supplemental electrolytes as needed throughout the stay. Due to the severity and longevity of your illness (dating back to early June) you became malnourished and your blood protein levels decreased. This led to the development of edema in your feet/legs. Your blood protein levels are improving as your food intake has gone up. Recommendations - 1. Please assume you are contagious to others until your stools are back to normal form/calibre. Alcohol-based hand sanitizers DO NOT kill c diff. Good handwashing with soap/water DOES kill c diff. See handouts. If you have 2 or more bathrooms at home please use a separate bathroom than your spouse until your illness has resolved. Cleaning/disinfecting your home - see handouts. 2. Dificid antibiotic - * Abimael Reese is giving you 2 tablets of this antibiotic to take on 07/25/24 * take 1 tablet in the morning and 1 tablet in the evening * then, on Thursday07/26/24, you should be receiving a 7-day supply of additional Dificid to complete your course * this will be mailed to your home; start it right away once it arrives 3. Cholestyramine powder - * take this once daily starting 07/25/24 * you can stop this medicine once your stools are back to normal quantity and normal form/calibre * suspect you will be able to stop it in about 3-4 days 4. DO NOT TAKE anti-diarrheal medicine such as Pepto-bismal or Imodium. 5. You can take an [id number] probiotic supplement if you desire. Take it once daily for about 2 weeks. 6. Low fiber diet x 10-14 days; see handout. 7. Amiodarone for your atrial fibrillation - * take (2) 200mg tablets twice daily x 4 days starting TONIGHT (400mg twice daily) --- Then - * reduce to (1) 200mg tablet once daily thereafter 8. DO NOT TAKE ANY METOPROLOL moving forward unless instructed by Dr Esquivel. 9. For vitamin D deficiency - * take ergocalciferol - 1 capsule once a week on Wednesdays x 7 weeks 10. For swelling in your feet/legs - * take furosemide diuretic 20mg each morning starting tomorrow * take a potassium & magnesium supplement when you take the furosemide * I gave you a 3-day supply of each * if the edema is minimal or gone by Thursday you can skip the remaining doses of furosemide/magnesium/potassium * however, you can take each up to 3 days in duration if necessary 11. Consider Boost or Ensure protein drink daily for about 10-14 days to help build your protein stores back up. Follow-up - see separate section Return to [facility] if - * you have fevers over 100.4 degrees * you have recurrent or worsening abdominal pain * your diarrhea worsens despite taking the Dificid * you have vomiting * you are short of breath or have chest pains * any other concerns It was our pleasure to care for you! Please continue to feel better, Dr Cordon Pending Studies at Discharge: No Stand-Alone Forms: My [facility], Smoking Cessation Medications and DC Order Prescriptions: New amiodarone 200 mg Tablet 200 mg PO DIRECTED Qty: 60 2RF Rx Instructions: take 2 tablets twice daily x 4 days, then reduce to 1 tablet daily thereafter. ergocalciferol (vitamin D2) 1,250 mcg (50,000 unit) Capsule 1,250 mcg PO We@0900 49 Days Qty: 7 0RF Rx Instructions: take 1 capsule each week on Wednesdays for total of 7 weeks. cholestyramine-aspartame [Prevalite] 4 gram Powder In Packet 1 ea PO DAILY Qty: 7 0RF Dificid 200 mg Tablet 200 mg PO BID 7 Days Qty: 14 0RF furosemide [Lasix] 20 mg tablet 20 mg PO QAM Qty: 3 0RF potassium chloride 20 mEq tablet extended release 20 meq PO DAILY Qty: 3 0RF magnesium chloride 64 mg tablet,delayed release (DR/EC) 64 mg PO DAILY Qty: 3 0RF Continued nitroglycerin 0.4 mg tablet, sublingual 0.4 mg Sublingual Q5M PRN (Reason: chest pain) Qty: 30 1RF apixaban 5 mg tablet 5 mg PO BID Qty: 180 3RF atorvastatin 80 mg tablet 80 mg PO QAM Qty: 90 3RF lisinopril 5 mg tablet 5 mg PO QAM Qty: 90 3RF aspirin [Jaxon Low Dose Aspirin] 81 mg tablet,delayed release (DR/EC) 81 mg PO QAM Discontinued metoprolol tartrate 25 mg tablet 25 mg PO Q6H PRN (Reason: palpitations) Qty: 30 5RF Discharge Orders: Discharge Order (Routine); Ordered 07/24/24 Ordered By: Dae Go/Other Patient Handouts: Amiodarone Oral Tablet, Fidaxomicin Oral Tablet, Low-Fiber Diet, C. Diff Prevent Infection, What Is C. Diff?, ED Diverticulosis Admission Data Admit Date/Time: 07/18/24 13:30 Attending Provider: Dae Cordon Admit Provider: Sav Perales Primary Care Provider: Basim Gomez Other Providers: Sav Perales; Сергей Nunn Hospital Stay Data Consultations 07/18/24 13:02 ED Decision to Admit Stat 07/18/24 13:33 Consult Cardiology Routine Diagnostic Imagining Performed 07/18/24 12:06 CT abd pelvis wo con Stat CT chest diagnostic wo con Stat Pending Results Patient Have Any Pending Studies at Discharge: No Discharge Instructions Given to Patient (Per Discharging Provider) Mr Chappell, You were hospitalized due to severe diarrhea. CT scan of your abdomen showed that the entire colon was sick & inflamed. We call this "colitis." There are a number of different causes of colitis including infection. You indeed had a severe infection due to clostridium difficile, also known as "c diff." You initially received vancomycin oral antibiotic for the c.diff. However, even after several days of this antibiotic, you were not improving. Thus, we changed you to a different antibiotic called "Dificid" on 07/20/24. You improved nicely with the Dificid. Your stay was complicated by rapid atrial fibrillation. [facility]iology assisted with the treatment of your atrial fibrillation. You ultimately were treated with a medicine called "amiodarone" which converted your atrial fibrillation back to normal rhythm. Since the amiodarone was started you have remained in normal rhythm. Your kidney function has returned to normal. Your electrolytes have returned to normal. You received supplemental electrolytes as needed throughout the stay. Due to the severity and longevity of your illness (dating back to early June) you became malnourished and your blood protein levels decreased. This led to the development of edema in your feet/legs. Your blood protein levels are improving as your food intake has gone up. Recommendations - 1. Please assume you are contagious to others until your stools are back to normal form/calibre. Alcohol-based hand sanitizers DO NOT kill c diff. Good handwashing with soap/water DOES kill c diff. See handouts. If you have 2 or more bathrooms at home please use a separate bathroom than your spouse until your illness has resolved. Cleaning/disinfecting your home - see handouts. 2. Dificid antibiotic - * Mo [place] is giving you 2 tablets of this antibiotic to take on 07/25/24 * take 1 tablet in the morning and 1 tablet in the evening * then, on Thursday07/26/24, you should be receiving a 7-day supply of additional Dificid to complete your course * this will be mailed to your home; start it right away once it arrives 3. Cholestyramine powder - * take this once daily starting 07/25/24 * you can stop this medicine once your stools are back to normal quantity and normal form/calibre * suspect you will be able to stop it in about 3-4 days 4. DO NOT TAKE anti-diarrheal medicine such as Pepto-bismal or Imodium. 5. You can take an urjm-[id number]-[id number] probiotic supplement if you desire. Take it once daily for about 2 weeks. 6. Low fiber diet x 10-14 days; see handout. 7. Amiodarone for your atrial fibrillation - * take (2) 200mg tablets twice daily x 4 days starting TONIGHT (400mg twice daily) --- Then - * reduce to (1) 200mg tablet once daily thereafter 8. DO NOT TAKE ANY METOPROLOL moving forward unless instructed by Dr Esquivel. 9. For vitamin D deficiency - * take ergocalciferol - 1 capsule once a week on Wednesdays x 7 weeks 10. For swelling in your feet/legs - * take furosemide diuretic 20mg each morning starting tomorrow * take a potassium & magnesium supplement when you take the furosemide * I gave you a 3-day supply of each * if the edema is minimal or gone by Thursday you can skip the remaining doses of furosemide/magnesium/potassium * however, you can take each up to 3 days in duration if necessary 11. Consider Boost or Ensure protein drink daily for about 10-14 days to help build your protein stores back up. Follow-up - see separate section Return to [facility] if - * you have fevers over 100.4 degrees * you have recurrent or worsening abdominal pain * your diarrhea worsens despite taking the Dificid * you have vomiting * you are short of breath or have chest pains * any other concerns It was our pleasure to care for you! Please continue to feel better, Dr Cordon Coding Diagnoses C. difficile colitis A04.72 Sepsis A41.9 Atrial fibrillation with RVR I48.91 Hypomagnesemia E83.42 Elevated troponin R79.89 Acute renal failure N17.9 Acute renal failure type: unspecified Hypocalcemia E83.51 CAD (coronary artery disease) I25.10 Vitamin D deficiency E55.9
[2024-07-24 14:33] VITALS: BP 128/69
[2024-07-24 16:19] VITALS: PULSE 60
[2024-07-25] MEDS ORDERED: FIDAXOMICIN 200 MG TAB PO SCH ×2 (09:00)
--- NOTE | 2024-07-27 15:32 | Electrocardiogram Report ---
Test Reason : Blood Pressure : */* mmHG Vent. Rate : 57 BPM Atrial Rate : 57 BPM P-R Int : 144 ms QRS Dur : 92 ms QT Int : 536 ms P-R-T Axes : 73 3 59 degrees QTcB Int : 521 ms Sinus bradycardia Low voltage QRS Anterior infarct (cited on or before 21-Jul-2024) Prolonged QT Abnormal ECG When compared with ECG of 21-Jul-2024 05:23, Premature atrial complexes are no longer Present Questionable change in initial forces of Anterior leads T wave amplitude has decreased in Anterior leads Confirmed by Elmer Ferrer ([id number]) on 07/27/2024 3:31:52 PM Referred By: REFERRED SELF Confirmed By: Elmer Ferrer
== END 2024-07-24 16:25 | disposition home or self-care (01) | DRG 872 ==
LOC: ED 10:28 → SUATTDRO 13:30 → 2E 13:30